=== PATIENT | female | born 1990 ===

== ENCOUNTER 2023-01-17 23:24 | Inpatient (IN) | payer MEDICAID, SELFPAY ==
--- NOTE | ~2023-01-17 | XR_ITS ---
EXAMINATION: XR CHEST CLINICAL INFORMATION: Rib pain. COMPARISON: None available. TECHNIQUE: Frontal view of the chest was obtained. FINDINGS: The cardiomediastinal silhouette is normal. There is no focal lung consolidation or pleural effusion. The bony structures and soft tissues are unremarkable. XR/XR chest 1V IMPRESSION: No active cardiopulmonary disease.
--- NOTE | ~2023-01-17 | CT_ITS ---
EXAMINATION: CT ABDOMEN AND PELVIS WITHOUT CONTRAST CLINICAL INFORMATION: Abdominal pain. COMPARISON: None available. TECHNIQUE: Multidetector volumetric imaging was performed from the superior aspect of the liver through the pubic symphysis. Sagittal and coronal reformatted images were obtained on the technologist's workstation. This CT examination was performed using dose optimization techniques as appropriate, variously including the following: *Automated exposure control *Adjustment of mA and/or kV according to patient size (this includes techniques or standardized protocols for targeted exams where dose is matched to indication/reason for exam; i.e. extremities or head) *Use of iterative reconstruction technique DLP: 429.02 mGy-cm FINDINGS: LUNG BASES: The visualized lung bases are unremarkable. LIVER, GALLBLADDER, AND BILIARY TREE: The liver is normal in size, shape, and attenuation. No focal hepatic lesion or biliary ductal dilatation is present. The gallbladder is unremarkable with no evidence of radiopaque gallstones, gallbladder wall thickening, or obvious pericholecystic inflammatory changes. PANCREAS: Unremarkable. SPLEEN: Unremarkable. ADRENAL GLANDS: Unremarkable. KIDNEYS AND URETERS: There is [id number] right hydronephrosis and hydroureter extending into the pelvis. No definite right ureteric calculi are seen. BLADDER: Unremarkable. GASTROINTESTINAL TRACT: The small and large bowel are unremarkable. There is retained stool throughout. The appendix is not definitively identified. ABDOMINAL WALL: No significant hernia is appreciated. LYMPH NODES: Normal. VASCULAR: Unremarkable. PELVIC VISCERA: Unremarkable. OSSEOUS STRUCTURES: Unremarkable. CT/CT abdomen pelvis wo IV con IMPRESSION: [id number] right hydronephrosis and hydroureter extending into the pelvis. No definitive ureteral calculi are seen. Consider recently passed calculus and less likely ascending infection.. Fleischner guidelines were followed.
[2023-01-17 23:42] VITALS: BP 124/69; PULSE 135; RESP 16; TEMP 39.3; O2SAT 95; BMI 24.7
[2023-01-18] VITALS (13 sets, daily range): BP systolic 94–132; BP diastolic 48–70; PULSE 69–129; RESP 14–20; TEMP 36.1–39.4; O2SAT 96–100
--- NOTE | 2023-01-18 00:01 | ED.GENADULT ---
HPI - General Adult General Chief complaint: General Medical Stated complaint: Vomiting/Diarrhea/Headache Time Seen by Provider: 01/17/23 23:52 Source: patient, RN notes reviewed, old records reviewed and science interpreter Mode of arrival: ambulatory Limitations: language barrier History of Present Illness HPI narrative: 32-year-old female who denies any past medical history presents for evaluation of fever, body aches and right flank pain Patient reports for the last 5 days she has had fevers, body aches, headache. She reports right-sided abdominal pain/flank pain as well as vomiting She reports some burning with urination but reports that this is mild Patient reports a surgical history that includes remote appendectomy and Caesarean section She reports a known history of genital herpes but denies any concern for acute STIs Denies any new sexual partners Patient arrives febrile with temperature a 102.7? of heart rate is regular but 135 beats per minute. Related Data Allergies Allergy/AdvReac Type Severity Reaction Status Date / Time amoxicillin AdvReac Anaphylaxis Verified 01/17/23 23:37 Review of Systems Constitutional: Constitutional: Reports as per HPI, Reports chills, Reports fever(s), Reports lethargy, Reports malaise and Reports weakness Cardiovascular: Cardiovascular: Denies chest pain and Denies dyspnea Respiratory: Respiratory: Denies cough and Denies dyspnea Gastrointestinal: Gastrointestinal: Reports abdominal pain, Denies constipation, Reports nausea and Reports vomiting Genitourinary: Genitourinary: Denies abnormal vaginal bleeding, Denies dysmenorrhea, Reports dysuria and Denies pelvic pain Musculoskeletal: Musculoskeletal: Denies back pain Neurologic: Denies focal weakness and Reports weakness PMFSH Social History Social History Alcohol intake: never Smoked in Last 30 Days: No Use of substances other than those prescribed or required for medical reasons: No Advance Directives: No Advance Directives Information Provided: Yes Patient : No Physical Exam ED Vital Signs: Vital Signs - 24 hr 01/17/23 23:42 01/18/23 00:00 01/18/23 00:57 Temperature 102.7 F H 102.0 F H Pulse Rate 135 H 126 H Pulse Rate [Monitor] 129 H Respiratory Rate 16 20 Blood Pressure 124/69 115/63 Pulse Oximetry 95 98 Oxygen Delivery Method Room Air Room Air Oxygen Flow Rate 01/18/23 00:57 01/18/23 01:31 01/18/23 02:31 Temperature 102.0 F H 102.9 F H 98.9 F Pulse Rate 127 H 115 H 98 Pulse Rate [Monitor] Respiratory Rate 18 16 16 Blood Pressure 109/70 115/48 L 102/50 L Pulse Oximetry 100 98 98 Oxygen Delivery Method Room Air Room Air Room Air Oxygen Flow Rate 98 BMI result Body Mass Index 24.7 Const General: healthy appearing, no acute distress, alert and awake Nutritional Appearance: well nourished Orientation/consciousness: patient oriented x3 HENMT Head: Yes normocephalic and Yes atraumatic Eyes Eyelids: Yes eyelids normal Conjunctivae: conjunctivae normal Sclerae: sclerae normal Corneas: corneas normal Pupils: Equal, round and reactive pupils present EOM: EOMs intact bilaterally Neck Neck: Yes full ROM Resp Effort & Inspection: normal respiratory effort, able to speak in complete sentences and not labored Cardio Rate: regular rate Rhythm: regular rhythm GI Inspection: No distended Palpation (GI): Soft to palpation, not firm, Tenderness to palpation present (GI) in the RUQ (Mild right upper quadrant tenderness without guarding), no guarding and not rigid Auscultation: normoactive bowel sounds General: Yes CVA tenderness (On right) Back/Spine/Pelvis Back: CVA tenderness (On right) Skin General skin exam: no rashes or lesions noted and elasticity normal Neuro General: patient oriented x3 Cranial nerves: Yes Equal, round and reactive pupils present and Yes Bilaterally intact EOM present Cognition (Neuro): normal cognition Extrem Other: Moving all extremities well without any obvious deformities Course Reevaluation(s) Reevaluation #1: The patient was found to be febrile and tachycardic. She had a suspected urinary infection with a right flank pain. Will treat with ceftriaxone as this is the likely cause. The patient's urine is negative, will consider advanced imaging in which case he may have to amend antibiotic choice Time: 01:29 Reevaluation #2: Patient's urine sample is positive for UTI with 4+ bacteria. This is likely the source of her infection given her symptoms. Patient still feels weak after C1 L IV fluid. I ordered Toradol and a 2 L of fluid. After her fever broke her temperature of 98.9,, her blood pressure was slightly hypotensive at 102/50. I discussed with the hospitalist, Dr. Hitchcock who will admit the patient Time: 02:39 Medications Administered Discontinued Medications Generic Name Dose Route Start Last Admin Trade Name Kailee PRN Reason Stop Dose Admin Acetaminophen 975 mg 01/17/23 23:57 01/18/23 00:51 Acetaminophen 325 Mg Tablet PO 01/17/23 23:58 975 mg ONCE ONE Administration Sodium Chloride 1,000 mls @ 999 mls/hr 01/17/23 23:45 01/18/23 00:51 Ns IV 01/18/23 00:45 999 mls/hr .Q1H1M ARGELIA Administration Ceftriaxone Sodium 1 gm/ 50 mls @ 100 mls/hr 01/18/23 01:26 01/18/23 01:41 Sodium Chloride IV 01/18/23 01:55 100 mls/hr ONCE ONE Administration Ondansetron HCl 4 mg 01/17/23 23:57 01/18/23 00:51 Ondansetron Hcl 4 Mg/2 Ml Vial IVPUSH 01/17/23 23:58 4 mg ONCE ONE Administration Medical Decision Making Medical Decision Making [facility] Narrative: 32-year-old female presents for evaluation of right flank pain, burning with urination, vomiting abdominal pain. She is mildly tender in the right upper quadrant, but she has significant right flank tenderness and positive CVA tenderness. She is tachycardic and febrile. Concern for sepsis. Will treat with IV fluids, antipyretics. Labs, UA pending. Will defer imaging until labs and UA results. CT scan versus ultrasound of the right upper quadrant. Differential Diagnosis Differential Diagnoses: The differential diagnosis associated with the presentation includes Acute cholecystitis Pyelonephritis UTI Sepsis Viral syndrome Pneumonia Lab Data 01/18/23 00:17 01/18/23 00:17 Labs: Lab Results 01/18/23 01/18/23 01/18/23 Range/Units 00:17 00:17 00:17 WBC 11.7 H (4.8-10.8) X10*3/uL RBC 4.01 L (4.20-5.50) X10*6/uL Hgb 11.6 L (12.0-16.0) g/dl Hct 34.4 L (37.0-47.0) % MCV 85.8 (80.0-98.0) fL MCH 28.9 (27.0-33.0) pg MCHC 33.7 (31.0-35.0) g/dl RDW 12.2 (11.0-16.0) % Plt Count 242 (160-400) X10*3/uL MPV 10.5 (9.4-12.3) fL Absolute Nucleated RBC 0.000 (0.0-0.012) X10*3/uL Nucleated RBC % (auto) 0.0 (0.0-0.2) /100WBC Sodium 132 L (135-145) mmol/L Potassium 3.5 (3.3-5.1) mmol/L Chloride 97 (96-108) mmol/L Carbon Dioxide 24 (22-29) mmol/L Anion Gap 15 (12-20) BUN 11 (9-16) mg/dL Creatinine 0.83 (0.5-1.4) mg/dL Estim Creat Clear Calc 85.3 Estimated GFR > 60 Random Glucose 110 (60-115) mg/dL Lactic Acid 1.2 (0.5-2.0) mmol/L Calcium 9.2 (8.4-10.2) mg/dL Total Bilirubin 0.5 (0.0-1.0) mg/dL AST 14 (5-31) U/L ALT 10 (0-31) U/L Alkaline Phosphatase 73 (39-117) U/L Total Protein 7.4 (6.5-8.0) g/dL Albumin 3.7 (3.5-5.0) g/dL Lipase 7 L (8-78) U/L Urine Color Urine Appearance Urine pH (5.0-9.0) Ur Specific [place] (1.005-1.025) Urine Protein (Neg-Trace) mg/dL Urine Glucose (UA) (Negative) mg/dL Urine Ketones (Negative) mg/dL Urine Blood (Negative) Urine Nitrite (Negative) Ur Leukocyte Esterase (Negative) Urine RBC (0-2) /HPF Urine WBC (0-5) /HPF Ur Squamous Epith Cells (0-2) /HPF Urine Bacteria (None Seen) Hyaline Casts (0-2) /LPF Urine Test (NEGATIVE) Influenza Type A (PCR) (Negative) Influenza Type B (PCR) (Negative) RSV RNA Qual (PCR) (Negative) SARS-CoV-2 RNA (RT-PCR) (Negative) 01/18/23 01/18/23 01/18/23 Range/Units 00:34 01:42 01:42 WBC (4.8-10.8) X10*3/uL RBC (4.20-5.50) X10*6/uL Hgb (12.0-16.0) g/dl Hct (37.0-47.0) % MCV (80.0-98.0) fL MCH (27.0-33.0) pg MCHC (31.0-35.0) g/dl RDW (11.0-16.0) % Plt Count (160-400) X10*3/uL MPV (9.4-12.3) fL Absolute Nucleated RBC (0.0-0.012) X10*3/uL Nucleated RBC % (auto) (0.0-0.2) /100WBC Sodium (135-145) mmol/L Potassium (3.3-5.1) mmol/L Chloride (96-108) mmol/L Carbon Dioxide (22-29) mmol/L Anion Gap (12-20) BUN (9-16) mg/dL Creatinine (0.5-1.4) mg/dL Estim Creat Clear Calc Estimated GFR Random Glucose (60-115) mg/dL Lactic Acid (0.5-2.0) mmol/L Calcium (8.4-10.2) mg/dL Total Bilirubin (0.0-1.0) mg/dL AST (5-31) U/L ALT (0-31) U/L Alkaline Phosphatase (39-117) U/L Total Protein (6.5-8.0) g/dL Albumin (3.5-5.0) g/dL Lipase (8-78) U/L Urine Color Yellow Urine Appearance Cloudy Urine pH 5.5 (5.0-9.0) Ur Specific [place] 1.020 (1.005-1.025) Urine Protein 100 (2+) H (Neg-Trace) mg/dL Urine Glucose (UA) Negative (Negative) mg/dL Urine Ketones 80 (Negative) mg/dL Urine Blood Small (1+) H (Negative) Urine Nitrite Negative (Negative) Ur Leukocyte Esterase Small (1+) H (Negative) Urine RBC 0-2 (0-2) /HPF Urine WBC 11-20 (0-5) /HPF Ur Squamous Epith Cells 11-20 (0-2) /HPF Urine Bacteria 4+ (None Seen) Hyaline Casts 3-5 (0-2) /LPF Urine Test NEGATIVE (NEGATIVE) Influenza Type A (PCR) NEGATIVE (Negative) Influenza Type B (PCR) NEGATIVE (Negative) RSV RNA Qual (PCR) NEGATIVE (Negative) SARS-CoV-2 RNA (RT-PCR) NEGATIVE (Negative) Discharge Plan Discharge Clinical Impression: Pyelonephritis of right kidney Patient Disposition: Admitted As Inpatient
[2023-01-18 00:20] LABS: Hematocrit 34.4 % (37.0-47.0); Hemoglobin 11.6 g/dl (12.0-16.0); Mean Corpuscular HGB Conc 33.7 g/dl (31.0-35.0); Mean Corpuscular Hemoglobin 28.9 pg (27.0-33.0); Mean Corpuscular Volume 85.8 fL (80.0-98.0); Mean Platelet Volume 10.5 fL (9.4-12.3); Platelet Count 242 X10*3/uL (160-400); Red Blood Count 4.01 X10*6/uL (4.20-5.50); Red Cell Distribution Width 12.2 % (11.0-16.0); White Blood Count 11.7 X10*3/uL (4.8-10.8)
[2023-01-18 00:29] LABS: Lactic Acid 1.2 mmol/L (0.5-2.0)
[2023-01-18 00:34] LABS: Alanine Aminotransferase 10 U/L (0-31); Albumin Level 3.7 g/dL (3.5-5.0); Alkaline Phosphatase 73 U/L (39-117); Anion Gap 15 (12-20); Aspartate Amino Transferase 14 U/L (5-31); Bilirubin Total 0.5 mg/dL (0.0-1.0); Blood Urea Nitrogen 11 mg/dL (9-16); Calcium 9.2 mg/dL (8.4-10.2); Carbon Dioxide 24 mmol/L (22-29); Chloride 97 mmol/L (96-108); Creatinine Clr Calc Pharmacy 85.3; Estimated Glomerular Filt Rate > 60; Glucose Random 110 mg/dL (60-115); Lipase 7 U/L (8-78); Potassium 3.5 mmol/L (3.3-5.1); Sodium 132 mmol/L (135-145); Total Protein 7.4 g/dL (6.5-8.0)
[2023-01-18] MEDS: 0.9 % Sodium Chloride 1,000 ML 999 ML IV ×2 (00:51→02:56)
[2023-01-18] MEDS: Acetaminophen 325 MG TABLET 975 MG PO (00:51)
[2023-01-18] MEDS: ondansetron HCL 4 MG/2 ML VIAL IVPUSH ×3 (00:51→21:01)
[2023-01-18 01:17] LABS: Influenza A PCR NEGATIVE (Negative); Influenza B PCR NEGATIVE (Negative); Resp Syncy Virus RNA Qual PCR NEGATIVE (Negative); SARS COV2 PCR INHOUSE NEGATIVE (Negative)
[2023-01-18] MEDS: cefTRIAXone sodium 1 GM in 0.9 % Sodium Chloride 50 ML IV ×2 (01:41→21:33)
--- NOTE | 2023-01-18 01:44 | MHC.EDTECH ---
PATIENT URINE SAMPLE COLLECTED AND SENT TO LAB ,VITALS SIGN TAKEN ,RN ALBERTINA IS AWARE OF PT HIGH TEMP ,HIGH HR AND LOW BP ,PATIENT WAS HOOKED TO TO GUEST SERVICE AIDE ,PT BOY FRIEND AT BEDSIDE .
[2023-01-18 01:48] LABS: Appearance Urine Cloudy; Color Urine Yellow; Glucose Urine UA Negative (Negative); Leukocyte Esterase Urine Small (1+) (Negative); Nitrite Urine Negative (Negative); PH 5.5 (5.0-9.0); UMIC TRIGGER UACC YES; Urine Blood Small (1+) (Negative); Urine Ketones 80 mg/dL (Negative); Urine Protein 100 (2+) mg/dL (Neg-Trace)
[2023-01-18 01:49] LABS: UPreg QC Valid YES; Urine Pregnancy NEGATIVE (NEGATIVE)
[2023-01-18 02:00] LABS: Bacteria Urine 4+ (None Seen); RBC Urine 0-2 /HPF (0-2); UACC Culture Trigger YES
[2023-01-18] MEDS: Ketorolac Tromethamine 30 MG/ML VIAL IVPUSH (02:56)
[2023-01-18] MEDS: Lactated Ringers 1,000 ML 999 ML IV (04:39)
--- NOTE | 2023-01-18 05:00 | PC.NURSE ---
Addendum entered by America Erwin Milvia 01/18/23 06:35: Labs drawn- lactic and blood cultures. Original Note: Medical interrupter present at bedside during assessment. PT arrived via waiting room with cc of fever since , burning sensation while urinating and malaise. 20g IV access in right AC, VSS. Bolus of Saline initiated and tylenol administered.
[2023-01-18 05:31] LABS: MANUAL DIFF FLAG NO
[2023-01-18 05:33] LABS: Basophils Percent Auto 0.2 % (0-2); Hematocrit 28.4 % (37.0-47.0); Hemoglobin 9.5 g/dl (12.0-16.0); Imm Gran Abs Auto 0.07 X10*3/uL (0.00-0.03); Imm Gran Pct Auto 0.7 % (0.0-0.4); Lymphocytes Absolute Auto 1.1 X10*3/uL (1.2-4.9); Lymphocytes Percent Auto 11.8 % (20-40); Mean Corpuscular HGB Conc 33.5 g/dl (31.0-35.0); Mean Corpuscular Hemoglobin 29.3 pg (27.0-33.0); Mean Corpuscular Volume 87.7 fL (80.0-98.0); Mean Platelet Volume 10.6 fL (9.4-12.3); Monocytes Absolute Auto 1.2 X10*3/uL (0.1-1.2); Neutrophils Percent Auto 74.3 % (45-73); Platelet Count 192 X10*3/uL (160-400); Red Blood Count 3.24 X10*6/uL (4.20-5.50); Red Cell Distribution Width 12.5 % (11.0-16.0); White Blood Count 9.5 X10*3/uL (4.8-10.8)
[2023-01-18 05:55] LABS: Anion Gap 12 (12-20); Blood Urea Nitrogen 10 mg/dL (9-16); Calcium 7.5 mg/dL (8.4-10.2); Carbon Dioxide 21 mmol/L (22-29); Chloride 107 mmol/L (96-108); Creatinine Clr Calc Pharmacy 105.7; Estimated Glomerular Filt Rate > 60; Glucose Random 104 mg/dL (60-115); Potassium 3.5 mmol/L (3.3-5.1); Sodium 136 mmol/L (135-145)
--- NOTE | 2023-01-18 06:12 | PM.IMHP ---
History of Present Illness Date of Service: 01/18/23 Chief Complaint: Flank pain, fever and chills 32-year-old female with no significant past medical history, Icelandic-speaking, history is obtained with the help of an hydraulic jack mechanic, comes into the hospital complaints of fever chills, and right flank pain. Symptoms started 4 days ago. Associated with some nausea no vomiting, no diarrhea constipation, pain is statin of 10, radiating to the groin, no urinary symptoms including no dysuria or frequency. Denies any chest pain, no shortness of breath, no headache or change in vision, and no lower extremity edema. On arrival to the ED patient hemodynamically stable with a fever of 102.7, heart rate of 135, Labs are significant for WBC count of 11.7, hemoglobin of 11.6, hematocrit 34.4, sodium of 132 that normalized after IV fluids, UA positive for leukocyte Estrace, WBC, bacteria Chest x-ray negative Patient started on antibiotics and will be admitted for further management Review of Systems Review of Systems: Yes all other systems are reviewed and are negative PMFSH Medical History No pertinent past medical history Surgical History No pertinent past surgical history Social History Alcohol intake: never Smoked in Last 30 Days: No Use of substances other than those prescribed or required for medical reasons: No Advance Directives: No Advance Directives Information Provided: Yes Patient : No Meds Allergies Allergy/AdvReac Type Severity Reaction Status Date / Time amoxicillin AdvReac Anaphylaxis Verified 01/17/23 23:37 Active Medications: Current Medications Acetaminophen (Acetaminophen 325 Mg Tablet) 650 mg PO Q6H PRN PRN Reason: Pain, Mild (Pain Scale 1-3) Docusate Sodium (Docusate Sodium 100 Mg Capsule) 100 mg PO DAILY PRN PRN Reason: Constipation Enoxaparin Sodium (Enoxaparin Sodium 40 Mg/0.4 Ml Syringe) 40 mg SUBCUT Q24H ARGELIA Ceftriaxone Sodium 1 gm/ (Sodium Chloride) 50 mls @ 100 mls/hr IV Q24H ARGELIA Ondansetron HCl (Ondansetron Hcl 4 Mg/2 Ml Vial) 4 mg IVPUSH Q8H PRN PRN Reason: Nausea and Vomiting Oxycodone HCl (Oxycodone Hcl Immed Release 5 Mg Tablet) 5 mg PO Q6H PRN PRN Reason: Pain, Severe (Pain Scale 7-10) Sodium Chloride (0.9 % Sodium Chloride Flush 3 Ml Syringe) 3 ml IVFLUSH QSHIFT ARGELIA Physical Exam Vital Signs and Narrative: Vital Signs: Last Vital Signs Temp 98.4 F 01/18/23 03:50 Pulse 79 01/18/23 03:50 Resp 15 01/18/23 03:50 BP 102/54 L 01/18/23 03:50 Pulse Ox 98 01/18/23 03:50 O2 Del Method Room Air 01/18/23 03:50 O2 Flow Rate 98 01/18/23 00:57 BMI result Body Mass Index 24.7 Const: Other: Ill-appearing General: cooperative and no acute distress Orientation/consciousness: patient oriented x3 Eyes: General: appearance normal, both eyes and all related structures Resp: Effort & Inspection: normal respiratory effort Auscultation: clear to auscultation bilaterally Cardio: Rate: regular rate Rhythm: regular rhythm GI: Palpation (GI): Soft to palpation Auscultation: normal bowel sounds : Other: Right CVA tenderness Skin: General skin exam: no rashes or lesions noted Neuro: General: patient oriented x3 Cognition (Neuro): normal cognition Extrem: General: Yes normal to inspection and Yes no pedal edema Results Labs 01/18/23 05:09 01/18/23 05:09 Labs: Laboratory Results - last 24 hr 01/18/23 01/18/23 01/18/23 00:17 00:17 00:17 MCV 85.8 MCH 28.9 MCHC 33.7 RDW 12.2 Plt Count 242 MPV 10.5 Immature Gran % (Auto) Neut % (Auto) Lymph % (Auto) [place] % (Auto) Eos % (Auto) Baso % (Auto) Lymph # (Auto) [place] # (Auto) Eos # (Auto) Baso # (Auto) Abs Immat Gran (auto) Absolute Neuts (auto) Absolute Nucleated RBC 0.000 Nucleated RBC % (auto) 0.0 Anion Gap 15 Estim Creat Clear Calc 85.3 Estimated GFR > 60 Random Glucose 110 Lactic Acid 1.2 Calcium 9.2 Total Bilirubin 0.5 AST 14 ALT 10 Alkaline Phosphatase 73 Total Protein 7.4 Albumin 3.7 Lipase 7 L Urine Color Urine Appearance Urine pH Ur Specific [place] Urine Protein Urine Glucose (UA) Urine Ketones Urine Blood Urine Nitrite Ur Leukocyte Esterase Urine RBC Urine WBC Ur Squamous Epith Cells Urine Bacteria Hyaline Casts Urine Test Influenza Type A (PCR) Influenza Type B (PCR) RSV RNA Qual (PCR) SARS-CoV-2 RNA (RT-PCR) 01/18/23 01/18/23 01/18/23 00:34 01:42 01:42 MCV MCH MCHC RDW Plt Count MPV Immature Gran % (Auto) Neut % (Auto) Lymph % (Auto) [place] % (Auto) Eos % (Auto) Baso % (Auto) Lymph # (Auto) [place] # (Auto) Eos # (Auto) Baso # (Auto) Abs Immat Gran (auto) Absolute Neuts (auto) Absolute Nucleated RBC Nucleated RBC % (auto) Anion Gap Estim Creat Clear Calc Estimated GFR Random Glucose Lactic Acid Calcium Total Bilirubin AST ALT Alkaline Phosphatase Total Protein Albumin Lipase Urine Color Yellow Urine Appearance Cloudy Urine pH 5.5 Ur Specific [place] 1.020 Urine Protein 100 (2+) H Urine Glucose (UA) Negative Urine Ketones 80 Urine Blood Small (1+) H Urine Nitrite Negative Ur Leukocyte Esterase Small (1+) H Urine RBC 0-2 Urine WBC 11-20 Ur Squamous Epith Cells 11-20 Urine Bacteria 4+ Hyaline Casts 3-5 Urine Test NEGATIVE Influenza Type A (PCR) NEGATIVE Influenza Type B (PCR) NEGATIVE RSV RNA Qual (PCR) NEGATIVE SARS-CoV-2 RNA (RT-PCR) NEGATIVE 01/18/23 01/18/23 05:09 05:09 MCV 87.7 MCH 29.3 MCHC 33.5 RDW 12.5 Plt Count 192 MPV 10.6 Immature Gran % (Auto) 0.7 H Neut % (Auto) 74.3 H Lymph % (Auto) 11.8 L [place] % (Auto) 13.0 H Eos % (Auto) 0.0 Baso % (Auto) 0.2 Lymph # (Auto) 1.1 L [place] # (Auto) 1.2 Eos # (Auto) 0.0 Baso # (Auto) 0.0 Abs Immat Gran (auto) 0.07 H Absolute Neuts (auto) 7.0 Absolute Nucleated RBC 0.000 Nucleated RBC % (auto) 0.0 Anion Gap 12 Estim Creat Clear Calc 105.7 Estimated GFR > 60 Random Glucose 104 Lactic Acid Calcium 7.5 L D Total Bilirubin AST ALT Alkaline Phosphatase Total Protein Albumin Lipase Urine Color Urine Appearance Urine pH Ur Specific [place] Urine Protein Urine Glucose (UA) Urine Ketones Urine Blood Urine Nitrite Ur Leukocyte Esterase Urine RBC Urine WBC Ur Squamous Epith Cells Urine Bacteria Hyaline Casts Urine Test Influenza Type A (PCR) Influenza Type B (PCR) RSV RNA Qual (PCR) SARS-CoV-2 RNA (RT-PCR) Imaging Radiologist's Impressions: Impressions Chest X-Ray 01/18/23 00:22 IMPRESSION: No active cardiopulmonary disease. Assessment and Plan (1) Pyelonephritis of right kidney: Status: Acute (2) Sepsis: Qualifiers: Sepsis type: sepsis due to unspecified organism Sepsis acute organ dysfunction status: without acute organ dysfunction Qualified Code(s): A41.9 - Sepsis, unspecified organism Status: Acute Plan 32-year-old female with no significant past medical history comes into the hospital with complaints of right flank pain found to have sepsis # acute sepsis - secondary to UTI - febrile, tachycardic, tachypneic, leukocytosis - will treat with IV antibiotics - follow cultures # acute pyelonephritis/ UTI - will treat with IV antibiotics - given the severe abdominal pain will obtain CT abdomen to rule out nephrolithiasis - follow cultures DVT prophylaxis: Lovenox Given patient's need for IV antibiotics for acute pyelonephritis is sepsis patient will require minimum 2 nights inpatient hospital stay for further management and monitoring Time Spent With Patient Time: Total time managing care of this patient today ____ minutes. Quality Stroke Does the patient have a stroke diagnosis?: No VTE Prior VTE?: No VTE Risk Level:: Medical - moderate - high VTE Device Contraindication: Treatment Not Indicated VTE Drug Contraindication: N/A - Med Ordered
--- NOTE | 2023-01-18 06:36 | PC.NURSE ---
Sepsis protocol initiated at 0130 By EMMA Castelan. IV antibiotics administered at 0141. Second bag of NS given at 0256 infusion done at 3:30. Two sets of BP completed at 0335 and 0351. PT BP soft discussed with provider. administered LR as per AUG. PT in trendelenburg position.
--- NOTE | 2023-01-18 07:41 | MHC.EDTECH ---
Pt oob to commode 1 assist. Bed linens cleaned and pt washed up. Resting quietly in bed watching tv, call araujo within reach.
--- NOTE | 2023-01-18 08:08 | PC.NURSE ---
montenegrin speaking pt - certified court/medical interpreter to bedside. pt axox4, vss bp soft 91/50; pt reports dizziness when standing/walking MD aware. respirations even and unlabored, nsr on monitor 76 bpm, sats 99% RA, skin wpd. pt denies pain at this time; states no pain upon urination. pt aware of plan of care; denies questions/concerns at this time. call araujo within reach.
--- NOTE | 2023-01-18 08:32 | PC.NURSE ---
md to bedside. aware of bp 94/47 and pt reporting dizziness. no further orders at this time.
[2023-01-18] MEDS: Enoxaparin Sodium 40 MG/0.4 ML SYRINGE SUBCUT (08:34)
[2023-01-18] MEDS: 0.9 % Sodium Chloride Flush 3 ML SYRINGE IVFLUSH (08:34)
[2023-01-18] MEDS: 0.9 % Sodium Chloride 1,000 ML 125 ML IVCONT ×2 (08:35→16:46)
--- NOTE | 2023-01-18 08:39 | PHA.MEDREC ---
Pharmacy Consult ? Medication Reconciliation Pharmacy has completed the medication reconciliation. Utilized intepreter services.
--- NOTE | 2023-01-18 08:42 | PC.NURSE ---
ivf infusing per order.
--- NOTE | 2023-01-18 09:38 | PM.EVENT ---
Event Note Date of Service: 01/18/23 Event Note: Personally seen and examined, admitted this morning with acute pyelonephritis, fever resolved, cultures pending. Continue IV Abx, follow cultures, IVF for borderline low BP, o/w A/P per H and P from this morning Time Spent With Patient Time: Total time managing care of this patient today ____ minutes.
--- NOTE | 2023-01-18 12:50 | PC.NURSE ---
Addendum entered by Ashley Torres 01/18/23 12:59: pt also reports nausea; pt medicated per aug. Original Note: pt axox4, tachy on monitor 138 bpm, respirations even and unlabored sats 98% RA, febrie 102F temp; Dr. Jaimes notified.
[2023-01-18] MEDS: Acetaminophen 325 MG TABLET 650 MG PO ×2 (12:56→19:26)
--- NOTE | 2023-01-18 14:02 | MHC.CM.PN ---
pt lves with family she had no servceis prior to admisison has her own ride home dc plan home no servcies
--- NOTE | 2023-01-18 17:35 | PC.NURSE ---
pt requesting to take shower. IV fluids paused, pt disconnected from IV, IV wrapped. SCHOOL BUS MECHANIC escorted pt to shower
--- NOTE | 2023-01-18 17:50 | PC.NURSE ---
nurse to nurse report given to MORENO Rivera
--- NOTE | 2023-01-18 17:54 | PC.NURSE ---
pt reports episode of diarrhea
--- NOTE | 2023-01-18 18:01 | MHC.EDTECH ---
Assisted pt with shower.
[2023-01-18] MEDS: oxyCODONE HCl Immed Release 5 MG TABLET PO (19:25)
[2023-01-19 03:26] VITALS: BP 116/63; PULSE 86; RESP 18; TEMP 36.7; O2SAT 100
[2023-01-19] MEDS: 0.9 % Sodium Chloride 1,000 ML 125 ML IVCONT ×3 (03:47→20:44)
[2023-01-19 07:13] VITALS: BP 104/59; PULSE 117; RESP 20; TEMP 38.4; O2SAT 97
[2023-01-19] MEDS: Acetaminophen 325 MG TABLET 650 MG PO ×2 (07:53→13:20)
[2023-01-19] MEDS: Enoxaparin Sodium 40 MG/0.4 ML SYRINGE SUBCUT (09:16)
--- NOTE | 2023-01-19 09:55 | PC.NURSE ---
Patient c/o headache congestions chest pain 4/10 in am with breathing. Temp 101.1. Dr Jaimes notified no new orders. Tylenol given with good results temp 98.6 per pt pain/discomfort improved. LSCTA no shortness of breath occasional dry cough. OOB to bathroom steady denies discomfort with voiding. IV fluids infusing per order. Will continue to monitor and report changes
--- NOTE | 2023-01-19 10:56 | P.PNIM_ITS ---
Subjective Subjective Date of Service: 01/19/23 Interval History: fever up to 101, tachycardic, cultures pending Physical Exam Vital Signs: Vital Signs: Last Vital Signs Temp 101.1 F H 01/19/23 07:13 Pulse 117 H 01/19/23 07:13 Resp 20 01/19/23 07:13 BP 104/59 L 01/19/23 07:13 Pulse Ox 97 01/19/23 07:13 O2 Del Method Room Air 01/19/23 07:13 O2 Flow Rate 98 01/18/23 00:57 BMI result Body Mass Index 24.7 Const: Other: General: AO X 3, no acute distress Resp: CTA bilateral CVS: S1,S2,RRR GI: +BS, NT, no distention Skin: No rash Neuro: motor grossly intact Psych: appropriate affect Objective Data Active Medications Acetaminophen (Acetaminophen 325 Mg Tablet) 650 mg PO Q6H PRN PRN Reason: Pain, Mild (Pain Scale 1-3) Last Admin: 01/19/23 07:53 Dose: 650 mg Documented By: LOUIS Docusate Sodium (Docusate Sodium 100 Mg Capsule) 100 mg PO DAILY PRN PRN Reason: Constipation Enoxaparin Sodium (Enoxaparin Sodium 40 Mg/0.4 Ml Syringe) 40 mg SUBCUT Q24H [facility] Last Admin: 01/19/23 09:16 Dose: 40 mg Documented By: LOUIS Ceftriaxone Sodium 1 gm/ (Sodium Chloride) 50 mls @ 100 mls/hr IV Q24H [facility] Last Infusion: 01/18/23 22:04 Dose: 0 mls/hr Documented By: CASSIE Sodium Chloride (Ns) 1,000 mls @ 125 mls/hr IVCONT .Q8H [facility] Last Admin: 01/19/23 03:47 Dose: 125 mls/hr Documented By: SILVINO Ondansetron HCl (Ondansetron Hcl 4 Mg/2 Ml Vial) 4 mg IVPUSH Q8H PRN PRN Reason: Nausea and Vomiting Last Admin: 01/18/23 21:01 Dose: 4 mg Documented By: CASSIE Oxycodone HCl (Oxycodone Hcl Immed Release 5 Mg Tablet) 5 mg PO Q6H PRN PRN Reason: Pain, Severe (Pain Scale 7-10) Last Admin: 01/18/23 19:25 Dose: 5 mg Documented By: CASSIE Sodium Chloride (0.9 % Sodium Chloride Flush 3 Ml Syringe) [facility] Last Admin: 01/19/23 07:54 Dose: Not Given Documented By: LOUIS Non-Admin Reason: IV Running Labs 01/18/23 05:09 01/18/23 05:09 Microbiology Microbiology Results: Microbiology 01/18/23 00:17 Blood Culture - Preliminary Blood - Venous No growth after 24 hours. 01/18/23 00:17 Blood Culture - Preliminary Blood - Venous No growth after 24 hours. Assessment and Plan (1) Hydronephrosis: Status: Acute Plan 32-year-old female with no significant past medical history comes into the hospital with complaints of right flank pain found to have sepsis # acute sepsis d/t UTI, and Pylonephritis, febril still, cultures pending. Continue Ceftriaxone. Get Urology consult due to hydronephrosis ? stone DVT prophylaxis: Lovenox Given patient's need for IV antibiotics for acute pyelonephritis is sepsis patient will require minimum 2 nights inpatient hospital stay for further management and monitoring Time Spent With Patient Time: Total time managing care of this patient today ____ minutes. Quality Stroke Does the patient have a stroke diagnosis?: No VTE Prior VTE?: No VTE Risk Level:: Medical - moderate - high VTE Device Contraindication: Treatment Not Indicated VTE Drug Contraindication: N/A - Med Ordered
--- NOTE | 2023-01-19 12:03 | MHC.CM.PN ---
EMR reviewed and per MD rounds, pt is not medically cleared for D/C home with blood cultures and UA pending. CM will continue to follow.
--- NOTE | 2023-01-19 12:31 | P.CNUR_ITS ---
History of Present Illness Consult details Consult date: 01/19/23 Narrative: 32-year-old female who presented for evaluation of fever, body aches and acute right flank pain Patient reports for the last 5 days she has had fevers, body aches, headache.? She reports right-sided abdominal pain/flank pain as well as vomiting She reports some burning with urination but reports that this is mild PM and surgical history that includes appendectomy and Caesarean section history of genital herpes but denies any concern for acute STIs, denies history of kidney stones in the past. Presentation in ED meets criteria for sepsis- 102.7?, tachycardia. Urine c/s pending. CTAP: [id number] right hydronephrosis and hydroureter extending into the pelvis. No definitive ureteral calculi are seen. Consider recently passed calculus and less likely ascending infection..? Review of Systems Review of Systems: 10 point ROS negative other than HPI PMFSH Past Medical History Medical History No pertinent past medical history Surgical History Surgical History No pertinent past surgical history Social History Social History Household Members: Friend(s) Housing: Apartment Do you presently have visiting nurse or other home services: No Alcohol intake: never Patient Tobacco Use Status: Never used Tobacco service: No Meds Allergies Allergy/AdvReac Type Severity Reaction Status Date / Time amoxicillin AdvReac Anaphylaxis Verified 01/17/23 23:37 Active Medications: Current Medications Acetaminophen (Acetaminophen 325 Mg Tablet) 650 mg PO Q6H PRN PRN Reason: Pain, Mild (Pain Scale 1-3) Last Admin: 01/19/23 07:53 Dose: 650 mg Docusate Sodium (Docusate Sodium 100 Mg Capsule) 100 mg PO DAILY PRN PRN Reason: Constipation Enoxaparin Sodium (Enoxaparin Sodium 40 Mg/0.4 Ml Syringe) 40 mg SUBCUT Q24H [facility] Last Admin: 01/19/23 09:16 Dose: 40 mg Ceftriaxone Sodium 1 gm/ (Sodium Chloride) 50 mls @ 100 mls/hr IV Q24H [facility] Last Infusion: 01/18/23 22:04 Dose: Infused Sodium Chloride (Ns) 1,000 mls @ 125 mls/hr IVCONT .Q8H [facility] Last Admin: 01/19/23 03:47 Dose: 125 mls/hr Ondansetron HCl (Ondansetron Hcl 4 Mg/2 Ml Vial) 4 mg IVPUSH Q8H PRN PRN Reason: Nausea and Vomiting Last Admin: 01/18/23 21:01 Dose: 4 mg Oxycodone HCl (Oxycodone Hcl Immed Release 5 Mg Tablet) 5 mg PO Q6H PRN PRN Reason: Pain, Severe (Pain Scale 7-10) Last Admin: 01/18/23 19:25 Dose: 5 mg Sodium Chloride (0.9 % Sodium Chloride Flush 3 Ml Syringe) 3 ml IVFLUSH QSHIFT [facility] Last Admin: 01/19/23 07:54 Dose: Not Given Home Medications Medication Instructions Recorded Confirmed Last Taken Type No Known Home Meds 01/18/23 01/18/23 Unknown History Physical Exam Vital Signs: Vital Signs: Last Vital Signs Temp 101.1 F H 01/19/23 07:13 Pulse 117 H 01/19/23 07:13 Resp 20 01/19/23 07:13 BP 104/59 L 01/19/23 07:13 Pulse Ox 97 01/19/23 07:13 O2 Del Method Room Air 01/19/23 07:13 O2 Flow Rate 98 01/18/23 00:57 BMI result Body Mass Index 24.7 Const: General: cooperative, healthy appearing and no acute distress Orientation/consciousness: patient oriented x3 HEENT: Head: Yes normal to inspection, Yes normocephalic and Yes atraumatic Eyes: Conjunctivae: conjunctivae normal Neck: Neck: Yes normal visual inspection and Yes trachea midline Chest: Chest palpation & inspection: normal inspection of the chest Resp: Effort & Inspection: normal respiratory effort Cardio: Rate: regular rate GI: Inspection: Yes normal to inspection Palpation (GI): Soft to palpation : General: Yes CVA tenderness (right) Back/Spine/Pelvis: Back: CVA tenderness (right) Skin: General skin exam: no rashes or lesions noted Neuro: General: patient oriented x3 Extrem: General: No edema Psych: Appearance: grossly normal Results Labs 01/18/23 05:09 01/18/23 05:09 Labs: Urine 08/08/23 08/08/23 Range/Units 01:42 01:42 Urine Color Yellow Urine Appearance Cloudy Urine pH 5.5 (5.0-9.0) Ur Specific [place] 1.020 (1.005-1.025) Urine Protein 100 (2+) H (Neg-Trace) mg/dL Urine Glucose (UA) Negative (Negative) mg/dL Urine Test NEGATIVE (NEGATIVE) Imaging Abdomen CT scan report/results: report reviewed and image reviewed CT scan - pelvis: report reviewed and image reviewed Additional studies: Date of Service: 01/18/23 EXAMINATION: CT ABDOMEN AND PELVIS WITHOUT CONTRAST? CLINICAL INFORMATION: Abdominal pain.? COMPARISON: None available. TECHNIQUE: Multidetector volumetric imaging was performed from the superior aspect of the liver through the pubic symphysis. Sagittal and coronal reformatted images were obtained on the technologist's workstation.? This CT examination was performed using dose optimization techniques as appropriate, variously including the following: *Automated exposure control *Adjustment of mA and/or kV according to patient size (this includes techniques or standardized protocols for targeted exams where dose is matched to indication/reason for exam; i.e. extremities or head) *Use of iterative reconstruction technique DLP: 429.02 mGy-cm FINDINGS: LUNG BASES: The visualized lung bases are unremarkable.? LIVER, GALLBLADDER, AND BILIARY TREE: The liver is normal in size, shape, and attenuation. No focal hepatic lesion or biliary ductal dilatation is present. The gallbladder is unremarkable with no evidence of radiopaque gallstones, gallbladder wall thickening, or obvious pericholecystic inflammatory changes.? PANCREAS: Unremarkable.? SPLEEN: Unremarkable.? ADRENAL GLANDS: Unremarkable.? KIDNEYS AND URETERS: There is [id number] right hydronephrosis and hydroureter extending into the pelvis. No definite right ureteric calculi are seen.? BLADDER: Unremarkable.? GASTROINTESTINAL TRACT: The small and large bowel are unremarkable. There is retained stool throughout. The appendix is not definitively identified. ABDOMINAL WALL: No significant hernia is appreciated.? LYMPH NODES: Normal. VASCULAR: Unremarkable. PELVIC VISCERA: Unremarkable.? OSSEOUS STRUCTURES: Unremarkable.? IMPRESSION: [id number] right hydronephrosis and hydroureter extending into the pelvis. No definitive ureteral calculi are seen. Consider recently passed calculus and less likely ascending infection..? Assessment and Plan (1) Hydronephrosis: Status: Acute (2) Pyelonephritis of right kidney: Status: Acute Plan Patient is clinically improving. nontoxic appearing Right hydronephrosis, likely passed right kidney stone Blood c/s negative so far urine c/s pending Cont IV Rocephin Time Spent With Patient Time: Total time managing care of this patient today ____ minutes. Procedures Date of Service Date of Service: 01/20/23
[2023-01-19 15:23] VITALS: BP 114/67; PULSE 65; RESP 14; TEMP 36.9; O2SAT 98
[2023-01-19 19:21] VITALS: BP 122/58; PULSE 95; RESP 14; TEMP 36.4; O2SAT 99
[2023-01-19] MEDS: oxyCODONE HCl Immed Release 5 MG TABLET PO (20:47)
[2023-01-19] MEDS: cefTRIAXone sodium 1 GM in 0.9 % Sodium Chloride 50 ML IV (21:34)
[2023-01-20 01:45] VITALS: TEMP 39.3
[2023-01-20] MEDS: Ketorolac Tromethamine 15 MG/ML VIAL IM (01:47)
[2023-01-20] MEDS: Fluticasone Propionate Nasal 16 GM SPRAY 1 SPRAY NOSTRIL-B (01:47)
[2023-01-20 02:30] VITALS: TEMP 37.9
[2023-01-20] MEDS: Morphine Sulfate 4 MG/ML CARTRIDGE IVPUSH (02:54)
[2023-01-20] MEDS: Acetaminophen 325 MG TABLET 650 MG PO ×2 (02:54→08:58)
[2023-01-20 03:10] LABS: Lactic Acid 0.7 mmol/L (0.5-2.0)
[2023-01-20 03:12] LABS: COVID-19 Test Negative (Negative); IDNOW Serial# 08D9AD1C
[2023-01-20 03:39] VITALS: BP 121/59; PULSE 93; RESP 20; TEMP 36.9; O2SAT 93
[2023-01-20] MEDS: 0.9 % Sodium Chloride 1,000 ML 125 ML IVCONT (05:31)
[2023-01-20 07:58] VITALS: BP 105/56; PULSE 75; RESP 20; TEMP 36.7; O2SAT 94
[2023-01-20] MEDS: Enoxaparin Sodium 40 MG/0.4 ML SYRINGE SUBCUT (08:33)
--- NOTE | 2023-01-20 08:43 | P.PNIM_ITS ---
Subjective Subjective Date of Service: 01/20/23 Interval History: Had a fever or 102 this morning, no flank pain, urine culture gnr Physical Exam Vital Signs: Vital Signs: Last Vital Signs Temp 98.0 F 01/20/23 07:58 Pulse 75 01/20/23 07:58 Resp 20 01/20/23 07:58 BP 105/56 L 01/20/23 07:58 Pulse Ox 94 01/20/23 07:58 O2 Del Method Room Air 01/20/23 07:58 O2 Flow Rate 98 01/18/23 00:57 BMI result Body Mass Index 24.7 Const: Other: General: AO X 3, no acute distress Resp: CTA bilateral CVS: S1,S2,RRR GI: +BS, NT, no distention, no flank tendernes Skin: No rash Neuro: motor grossly intact Psych: appropriate affect Objective Data Active Medications Acetaminophen (Acetaminophen 325 Mg Tablet) 650 mg PO Q6H PRN PRN Reason: Pain, Mild (Pain Scale 1-3) Last Admin: 01/20/23 02:54 Dose: 650 mg Documented By: KATERIN Docusate Sodium (Docusate Sodium 100 Mg Capsule) 100 mg PO DAILY PRN PRN Reason: Constipation Enoxaparin Sodium (Enoxaparin Sodium 40 Mg/0.4 Ml Syringe) 40 mg SUBCUT Q24H [facility] Last Admin: 01/20/23 08:33 Dose: 40 mg Documented By: NEHEMIAS Ceftriaxone Sodium 1 gm/ (Sodium Chloride) 50 mls @ 100 mls/hr IV Q24H [facility] Last Infusion: 01/19/23 22:13 Dose: 0 mls/hr Documented By: KATERIN Sodium Chloride (Ns) 1,000 mls @ 125 mls/hr IVCONT .Q8H [facility] Last Admin: 01/20/23 05:31 Dose: 125 mls/hr Documented By: KATERIN Ondansetron HCl (Ondansetron Hcl 4 Mg/2 Ml Vial) 4 mg IVPUSH Q8H PRN PRN Reason: Nausea and Vomiting Last Admin: 01/18/23 21:01 Dose: 4 mg Documented By: CASSIE Oxycodone HCl (Oxycodone Hcl Immed Release 5 Mg Tablet) 5 mg PO Q4H PRN PRN Reason: Pain, Severe (Pain Scale 7-10) Sodium Chloride (0.9 % Sodium Chloride Flush 3 Ml Syringe) 3 ml IVFLUSH QSHIFT [facility] Last Admin: 01/20/23 08:34 Dose: Not Given Documented By: NEHEMIAS Non-Admin Reason: IV Running Labs 01/18/23 05:09 01/18/23 05:09 Labs: Laboratory Results - last 24 hr 01/20/23 01/20/23 02:55 02:55 Lactic Acid 0.7 COVID-19 ([facility]) Negative COVID-19 Clin Com See Note Microbiology Microbiology Results: Microbiology 01/18/23 Unknown Urine Culture - Final Urine clean catch - Clean Catch Midstream Escherichia coli 01/18/23 00:17 Blood Culture - Preliminary Blood - Venous No growth after 48 hours. 01/18/23 00:17 Blood Culture - Preliminary Blood - Venous No growth after 48 hours. Assessment and Plan (1) Hydronephrosis: Status: Acute Plan 32-year-old female with no significant past medical history comes into the hospital with complaints of right flank pain found to have sepsis # acute sepsis d/t UTI, and Pylonephritis, febrile still, blood culture negative, Urine culture GNR. Continue Ceftriaxone. Uro recommends no intervention for likely Passed stone, #nasal congestionn--[place] DVT prophylaxis: Lovenox Given patient's need for IV antibiotics for acute pyelonephritis is sepsis patient will require minimum 2 nights inpatient hospital stay for further management and monitoring Time Spent With Patient Time: Total time managing care of this patient today ____ minutes. Quality Stroke Does the patient have a stroke diagnosis?: No VTE Prior VTE?: No VTE Risk Level:: Medical - moderate - high VTE Device Contraindication: Treatment Not Indicated VTE Drug Contraindication: N/A - Med Ordered
[2023-01-20] MEDS: Ibuprofen 600 MG TABLET PO (12:17)
[2023-01-20 15:33] VITALS: BP 113/78; PULSE 76; RESP 14; TEMP 37; O2SAT 99
[2023-01-20 19:35] VITALS: BP 110/69; PULSE 71; RESP 16; TEMP 36.3; O2SAT 98
[2023-01-20] MEDS: cefTRIAXone sodium 1 GM in 0.9 % Sodium Chloride 50 ML IV (23:23)
[2023-01-20] MEDS: 0.9 % Sodium Chloride Flush 3 ML SYRINGE IVFLUSH (23:24)
[2023-01-21 04:00] VITALS: BP 128/58; PULSE 94; RESP 17; TEMP 37.6; O2SAT 91
--- NOTE | 2023-01-21 07:00 | P.DS_ITS ---
DS: Providers Provider Date of Service: 01/21/23 Date of admission: 01/18/23 04:07 Primary care physician: None Physician Consults: 01/19/23 07:42 Consult to Urology Routine Consulting Provider: [facility] Reason for consultation: Hydronephrosis, pylo Has provider been notified: No DS: Diagnosis Discharge Diagnosis (1) Hydronephrosis: Status: Acute DS: Summary Hospital Course Hospital Course: Flank pain, fever and chills 32-year-old female with no significant past medical history, Divehi-speaking, history is obtained with the help of an certified court/medical interpreter, comes into the hospital complaints of fever chills, and right flank pain.? Symptoms started 4 days ago.? Associated with some nausea no vomiting, no diarrhea constipation, pain is statin of 10, radiating to the groin, no urinary symptoms including no dysuria or frequency.? Denies any chest pain, no shortness of breath, no headache or change in vision, and no lower extremity edema.? On arrival to the ED patient hemodynamically stable with a fever of 102.7, heart rate of 135, Labs are significant for WBC count of 11.7, hemoglobin of 11.6, hematocrit 34.4, sodium of 132 that normalized after IV fluids, UA positive for leukocyte Estrace, WBC, bacteria Chest x-ray negative Patient started on antibiotics and will be admitted for further management Hospital course: Patient presented with right flank pain, fever chill and was found to have acute pyelonephritis as demonstrated on a CT scan which also showed right-sided hydronephrosis but no evidence of stone. Her renal function was normal. She was admitted and given IV ceftriaxone urine culture ultimately came back positive for E coli that was sensitive to all antibiotics tested. Fever has resolved, she no longer has a right flank pain, she was seen by urologist and believed that she may have passed a stone and did not need any intervention. At this point the patient is doing well and will be transitioned to oral antibiotic (Cefpoxime 200 mg twice daily) to be treated for an additional 7 days. Time Spent with Patient Time attestation: Total time managing care of this patient today ____ minutes. Discharge coordination time: Greater than 30 minutes Quality: Safe Use of Opioids Does Pt have an Active Cancer Diagnosis on the Problem List?: No Quality: Stroke Does the patient have a stroke diagnosis?: No Physical Exam Vital Signs: Vital Signs: Last Vital Signs Temp 99.7 F 01/21/23 04:00 Pulse 94 01/21/23 04:00 Resp 17 01/21/23 04:00 BP 128/58 L 01/21/23 04:00 Pulse Ox 91 L 01/21/23 04:00 O2 Del Method Room Air 01/21/23 04:00 O2 Flow Rate 98 01/18/23 00:57 BMI result Body Mass Index 24.7 Const: Other: General: AO X 3, no acute distress Resp: CTA bilateral CVS: S1,S2,RRR GI: +BS, NT, no distention Skin: No rash Neuro: motor grossly intact Psych: appropriate affect DS: Data Data Completed and Pending Labs on day of discharge: Preliminary micro results at discharge 01/20/23 02:55 Blood Culture - Preliminary Blood - Venous No growth after 24 hours. 01/20/23 02:55 Blood Culture - Preliminary Blood - Venous No growth after 24 hours. 01/18/23 00:17 Blood Culture - Preliminary Blood - Venous No growth after 48 hours. 01/18/23 00:17 Blood Culture - Preliminary Blood - Venous No growth after 48 hours. Discharge Plan Discharge Anticipated Discharge Date/Time: 01/21/23 06:58 Patient Disposition: Home, Self-Care Discharge Diagnosis: Sepsis due to acute Pylonephritis, hydronephrosis Referrals: Physician,None [Primary Care Provider] - 1 Week Discharge Medications: New cefpodoxime 200 mg tablet 200 mg PO BID Qty: 14 0RF Rx Instructions: must administer with a meal/food Discharge Orders: Discharge Order (Routine); Ordered 01/21/23 Ordered By: Niels Jaimes Diet: Advance to usual diet Activity on Discharge: As tolerated Stand Alone Forms: Patient Portal Discharge page Care Plan Goals: Full recovery from acute pyelonephritis and sepsis. Health Concerns: Acute pyelonephritis, sepsis. Plan of Treatment: Take cefpodoxime 200mg twice daily for 7 days, as directed and follow up with her primary care doctor within a week, call for appointment. Retuen to the emergency if your symptoms come back Assessment: As above
[2023-01-21 07:29] VITALS: BP 126/63; PULSE 80; RESP 20; TEMP 37.6; O2SAT 92
[2023-01-21] MEDS: Acetaminophen 325 MG TABLET 650 MG PO (08:34)
--- NOTE | 2023-01-21 09:09 | MHC.CM.PN ---
PT MEDICALLY CLEARED FOR D/C HOME SELF-CARE, PT TO ARRANGE TRANSPORT
== END 2023-01-21 09:21 | disposition home or self-care (01) | DRG 720 ==
LOC: HO.ED 01-18 02:41 → HO.EDOVER 01-18 04:11 → HO.IMC 01-18 17:29
PROVIDERS: Admitting Provider Internal Medicine; Emergency Provider Internal Medicine; Visit Provider Internal Medicine
DX: A41.9 Sepsis, unspecified organism (principal); N13.6 Pyonephrosis; B96.20 Unspecified Escherichia coli [E. coli] as the cause of diseases classified elsewhere; Z88.0 Allergy status to penicillin
CPT/HCPCS: 0241U; 36415; 71045; 74176; 80048; 80053; 81001; 81025; 83605; 83690; 85025; 85027; 87040; 87086; 87088; 87186; 87635; 99285; J0696; J1650; J1885; J2270; J2405

== ENCOUNTER → 2023-01-18 04:07 | Outpatient (BNV) | payer MEDICAID, SELFPAY | PROVIDERS: Admitting Provider Internal Medicine; Emergency Provider Internal Medicine; Visit Provider Urology | DX: N13.30 Unspecified hydronephrosis (principal); N12 Tubulo-interstitial nephritis, not specified as acute or chronic | CPT/HCPCS: 99222 ==

== ENCOUNTER → 2023-01-18 04:07 | Outpatient (BNV) | payer MEDICAID, SELFPAY | PROVIDERS: Admitting Provider Internal Medicine; Emergency Provider Internal Medicine; Visit Provider Internal Medicine | DX: N13.30 Unspecified hydronephrosis (principal) | CPT/HCPCS: 99223; 99232; 99239; 99499 ==

== ENCOUNTER 2023-04-25 12:37 | Outpatient (REF) | payer MEDICAID, SELFPAY ==
[2023-04-25 13:16] LABS: MANUAL DIFF FLAG NO
[2023-04-25 13:42] LABS: Basophils Absolute Auto 0.1 X10*3/uL (0.0-0.2); Basophils Percent Auto 0.7 % (0-2); Eosinophils Absolute Auto 0.4 X10*3/uL (0.0-0.4); Eosinophils Percent Auto 4.3 % (0-4); Hematocrit 38.5 % (37.0-47.0); Hemoglobin 12.2 g/dl (12.0-16.0); Imm Gran Abs Auto 0.02 X10*3/uL (0.00-0.03); Imm Gran Pct Auto 0.2 % (0.0-0.4); Lymphocytes Absolute Auto 2.1 X10*3/uL (1.2-4.9); Lymphocytes Percent Auto 24.3 % (20-40); Mean Corpuscular HGB Conc 31.7 g/dl (31.0-35.0); Mean Corpuscular Hemoglobin 28.2 pg (27.0-33.0); Mean Corpuscular Volume 88.9 fL (80.0-98.0); Mean Platelet Volume 11.4 fL (9.4-12.3); Monocytes Absolute Auto 0.7 X10*3/uL (0.1-1.2); Monocytes Percent Auto 8.5 % (2-11); Neutrophils Absolute Auto 5.3 x10*3/uL (2.0-8.3); Platelet Count 357 X10*3/uL (160-400); Red Blood Count 4.33 X10*6/uL (4.20-5.50); Red Cell Distribution Width 12.6 % (11.0-16.0); White Blood Count 8.5 X10*3/uL (4.8-10.8)
[2023-04-25 14:24] LABS: Iron 74 mcg/dL (30-160); Percent Iron Saturation 22 % (15-50); Total Iron Binding Capacity 334 mcg/dL (228-428); Unsaturated Iron Binding 260 ug/dL
[2023-04-25 14:27] LABS: Ferritin 16 ng/mL (10-122)
[2023-04-25 14:42] LABS: Folate 14.4 ng/mL (> or = 4.0); Vitamin B12 377 pg/mL (200-900)
[2023-04-25 19:41] LABS: Influenza A PCR NEGATIVE (Negative); Influenza B PCR NEGATIVE (Negative); Resp Syncy Virus RNA Qual PCR NEGATIVE (Negative); SARS COV2 PCR INHOUSE NEGATIVE (Negative)
== END 2023-04-25 12:38 | disposition home or self-care (01) ==
LOC: HO.HHCL 12:37
PROVIDERS: Visit Provider Emergency Medicine
DX: R68.89 Other general symptoms and signs (principal); D64.9 Anemia, unspecified; Z11.52 Encounter for screening for COVID-19
CPT/HCPCS: 0241U; 36415; 82607; 82728; 82746; 83540; 85025

== ENCOUNTER 2024-01-03 11:58 | Outpatient (REF) | payer MEDICAID, SELFPAY ==
[2024-01-03 14:01] LABS: MANUAL DIFF FLAG NO
[2024-01-03 14:06] LABS: Basophils Percent Auto 0.6 % (0-2); Eosinophils Absolute Auto 0.1 X10*3/uL (0.0-0.4); Eosinophils Percent Auto 2.1 % (0-4); Hematocrit 36.9 % (37.0-47.0); Hemoglobin 11.9 g/dl (12.0-16.0); Imm Gran Abs Auto 0.02 X10*3/uL (0.00-0.03); Imm Gran Pct Auto 0.4 % (0.0-0.4); Lymphocytes Absolute Auto 1.7 X10*3/uL (1.2-4.9); Lymphocytes Percent Auto 33.9 % (20-40); Mean Corpuscular HGB Conc 32.2 g/dl (31.0-35.0); Mean Corpuscular Hemoglobin 28.1 pg (27.0-33.0); Mean Corpuscular Volume 87.2 fL (80.0-98.0); Mean Platelet Volume 11.7 fL (9.4-12.3); Monocytes Absolute Auto 0.5 X10*3/uL (0.1-1.2); Monocytes Percent Auto 10.1 % (2-11); Neutrophils Absolute Auto 2.7 x10*3/uL (2.0-8.3); Neutrophils Percent Auto 52.9 % (45-73); Platelet Count 325 X10*3/uL (160-400); Red Blood Count 4.23 X10*6/uL (4.20-5.50); Red Cell Distribution Width 13.5 % (11.0-16.0); White Blood Count 5.1 X10*3/uL (4.8-10.8)
[2024-01-03 14:18] LABS: Estimated Average Glucose 97 mg/dL
[2024-01-03 14:35] LABS: Alanine Aminotransferase 18 U/L (0-31); Albumin Level 4.2 g/dL (3.5-5.0); Alkaline Phosphatase 61 U/L (39-117); Anion Gap 12 (12-20); Aspartate Amino Transferase 18 U/L (5-31); Bilirubin Total 0.5 mg/dL (0.0-1.0); Blood Urea Nitrogen 10 mg/dL (9-16); Calcium 9.8 mg/dL (8.4-10.2); Carbon Dioxide 27 mmol/L (22-29); Chloride 104 mmol/L (96-108); Cholesterol 145 mg/dL (<200); Estimated Glomerular Filt Rate > 60; Glucose Random 87 mg/dL (60-115); HDL Cholesterol 49 mg/dL (>40); LDL Cholesterol Calculated 89 mg/dL (<100); Sodium 139 mmol/L (135-145); Total Protein 7.4 g/dL (6.5-8.0); Triglycerides 37 mg/dL (<150)
[2024-01-03 14:53] LABS: TSH reflex Free T4 0.45 uIU/mL (0.32-4.0)
[2024-01-04 08:30] LABS: Syphilis Screen Nonreactive (Nonreactive)
[2024-01-04 08:47] LABS: HIV AB/AG Nonreactive (Nonreactive); HIV Num 1 0.05 S/CO (0.00-0.99); ~HepC Num1 0.14 S/CO (0.00-0.79); ~Hepatitis C Antibody Nonreactive (Nonreactive)
== END 2024-01-03 11:59 | disposition home or self-care (01) ==
LOC: HO.CHCLDS 11:58
PROVIDERS: Visit Provider Internal Medicine
DX: R53.83 Other fatigue (principal); Z20.2 Contact with and (suspected) exposure to infections with a predominantly sexual mode of transmission
CPT/HCPCS: 36415; 80053; 80061; 83036; 84443; 85025; 86780; 86803; 87389

== ENCOUNTER 2024-01-18 18:15 | Outpatient (REF) | payer MEDICAID, SELFPAY ==
[2024-01-21 11:29] LABS: HPV mRNA E6/E7 Not Detected (Not Detected)
== END 2024-01-18 18:16 | disposition home or self-care (01) ==
LOC: HO.CHCLNP 18:15
PROVIDERS: Visit Provider Internal Medicine
DX: Z01.419 Encounter for gynecological examination (general) (routine) without abnormal findings (principal)
CPT/HCPCS: 36415; 87624; 88175

== ENCOUNTER 2024-03-22 12:48 | Outpatient (REF) | payer MEDICAID, SELFPAY ==
--- NOTE | ~2024-03-22 | US_ITS ---
EXAMINATION: MM DIAGNOSTIC DIGITAL BREAST TOMOSYNTHESIS, BILATERAL US BREAST LIMITED, RIGHT MAMMOGRAPHY: CLINICAL INFORMATION: Palpable abnormality right breast 1:00 axis superior to nipple. Baseline examination. No prior surgeries. No family history of breast CA. COMPARISON: Mammography: None. Baseline exam. TECHNIQUE: Digital breast tomosynthesis is performed in both the craniocaudal and mediolateral oblique views along with computer-aided detection (CAD). Synthesized 2D images are generated from the tomosynthesis. FINDINGS: The breasts are heterogeneously dense, which may obscure small masses (ACR BI-RADS breast composition Category c). There are bilateral numerous circumscribed round and oval masses in the right greater than left breasts. These are statistically benign, related to numerous cysts or benign fibroadenomas. An oval circumscribed mass within the 1:00 axis right breast approximately 4 cm from the nipple correlates well with the palpable focus of marked by the technologist with the aid of the patient. This will be interrogated with ultrasound. There are no suspicious masses, suspicious grouped calcifications, or areas of architectural distortion in either breast. There is no skin or axillary abnormality. ULTRASOUND: CLINICAL INFORMATION: As above. COMPARISON: None TECHNIQUE: Targeted sonographic evaluation right breast was performed using a high frequency linear transducer. Right breast was scanned from the 9:00 to the 2:00 axis, to include the area of palpable concern. Selected archived documentation. FINDINGS: RIGHT BREAST: -Within the 1:00 axis of the right breast, 4 cm from the nipple, there is a simple bilobed cyst measuring 2.5 x 1.5 x 2.0 cm, correlating with the focus of palpable concern. This finding is benign. There are several large adjacent cysts more inferolaterally, the largest at 10:00 measuring up to 5.3 x 4.7 x 1.6 cm. A few smaller simple cysts are also present in this region. No suspicious findings are evident. US/US breast RT limited mamm only IMPRESSION: -There are no findings in either breast suspicious for malignancy. -There are numerous benign cysts cysts in the right breast as described. A cyst at 1:00 correlates well with the focus of palpable concern. This is benign. -There are similar smaller oval and round circumscribed in the left breast. The findings are consistent with bilateral cysts. -Recommend the patient resume routine annual screening mammography at age 42. OVERALL ASSESSMENT: Mammography: BI-RADS 2 - Benign Findings Ultrasound: BI-RADS 2 - Benign Findings RECOMMENDATION: Mammo at 40 or earlier if clinically needed Electronically signed by: Srini Marie MD 03/22/2024 04:08 PM EDT
== END 2024-03-22 12:49 | disposition home or self-care (01) ==
LOC: HO.MAMMO 12:48
PROVIDERS: PCP Family Medicine; Visit Provider Family Medicine
DX: N64.4 Mastodynia (principal)
CPT/HCPCS: 76642; 77062; 77066

== ENCOUNTER → 2024-03-22 12:52 | Outpatient (BNV) | payer MEDICAID, SELFPAY | PROVIDERS: PCP Family Medicine; Visit Provider Radiology Diagnostic Radiology | DX: N60.21 Fibroadenosis of right breast (principal); N60.01 Solitary cyst of right breast | CPT/HCPCS: 76642; 77062; 77066 ==

== ENCOUNTER 2024-04-05 17:23 | Outpatient (REF) | payer MEDICAID, SELFPAY ==
[2024-04-05 17:28] LABS: Appearance Urine Clear; Color Urine Yellow; Glucose Urine UA Negative (Negative); Leukocyte Esterase Urine Trace (Negative); Nitrite Urine Negative (Negative); PH 7.5 (5.0-9.0); UMIC TRIGGER UACC YES; Urine Blood Negative (Negative); Urine Ketones Negative (Negative); Urine Protein Negative (Neg-Trace)
[2024-04-05 17:31] LABS: Bacteria Urine 4+ (None Seen); Hyaline Casts Urine 0-2 /LPF (0-2); RBC Urine 0-2 /HPF (0-2); Squamous Epithelial Cell Urine 0-2 /HPF (0-2); WBC Urine 0-5 /HPF (0-5)
== END 2024-04-05 17:24 | disposition home or self-care (01) ==
LOC: HO.HHCLNP 17:23
PROVIDERS: Visit Provider Family Medicine
DX: R10.31 Right lower quadrant pain (principal)
CPT/HCPCS: 36415; 81001

== ENCOUNTER 2024-04-23 16:01 | Outpatient (REF) | payer MEDICAID, SELFPAY | END 2024-04-23 16:02 | disposition home or self-care (01) | LOC: HO.US 16:01 | PROVIDERS: PCP Internal Medicine; Visit Provider Family Medicine | DX: R10.31 Right lower quadrant pain (principal) | CPT/HCPCS: 76830; 76856 ==

== ENCOUNTER 2024-08-08 12:10 | Outpatient (REF) | payer MEDICAID, SELFPAY ==
--- OUTSIDE RECORDS SUMMARY | 2024-08-08 19:37 | XMS_ITS | Encounter Summary ---
Author Organization [employer] Address [address] [facility] 7 [place] [address] Care Team Providers Care Civil Preparedness Coordinator Name Role Phone Colby Shore MD Primary Care Prov ider Reason for Visit * Reason Onset Date Comments triage 07/16/2024 Encounter Details Date Type Department Care Team ([facility] st Contact Info) Description 07/16/2024 Telephone [facility] CHC MED & PEDS [address] [place], [place] [phone] Colby Shore MD [address] [place] [address] triage Social History Tobacco Use Types Packs/Day Years Used Date Smoking Tobacco: Former Cigarettes Q uit: 2019 Passive Smoke Exposure: Never Smokeless Tobacco: Never Alcohol Use Standard Drinks/Week Comments Yes 0 (1 standard drink = 0.6 oz pur e alcohol) social Depression Answer Date Recorded Patient Health Questionnaire-9 Score 0 12/13/2023 Patient Health Questionnaire-9 Score 0 12/13/2023 Last PHQ-9: Questionnaire Data Not on file 0 12/13/2023 Housing Stability Answer Date Recorded What is your housing situation today? I have zainab palomo 12/06/[address] you li ve. Do you have problems with any of the following? None of the above 12/06/2023 Food Insecurity Answer Date Recorded Within the past 12 months, y ou worried that your food would run out before you got money to buy more: Never True 12/06/2023 Within the past 12 months,th e food you bought just didn't last and you didn't have enough money to get more: Never True Transportation Answer Date Recorded In the past 12 months, has l ack of transportation kept you from medical appts, meetings, work or from getting things needed for daily living? No 12/06/2023 Utilities Answer Date Recorded In the past 12 months, has t he electric, gas, oil or water company threatened to shut off services in your home? No 12/06/2023 Depression Answer Date Recorded Patient Health Questionnaire-2 Score 0 12/13/2023 Internet Access Answer Date Recorded Internet Access Q1 Yes 02/13/2024 Internet Access Q2 Not on file 02/13/2024 Comments Unknown Sex and Gender Information Value Date Recorded Sex Assigned at Female 04/20/2023 11:55 AM EST Legal Sex Female 2:04 PM EDT Gender Identity Female 04/20/2023 11:51 AM EST Sexual Orientation Straight 04/20/2023 11 :53 AM EST documented as of this encounter Miscellaneous Notes * Telephone Encounter - Maday Reddy RN - 07/16/2024 11:27 AM EST Triage call x3 with [facility] [place] [id number], Benny. Pt didn't answer or was hanging up with call. Continuous Miner Operator Helper wasn't sure why the call wasn't connecting. Unable to leave voice message. * Telephone Encounter - Ainsley Maradiaga - 07/16/2024 10:56 AM EST Pt requesting appt w/ sewing inspector stated every time before her menstrual cycle she gets bv or yeast. Pt stated she's spoken to pcp about it and requesting an appt documented in this encounter Plan of Treatment Upcoming Encounters Date Type Department Care Team (Late st Contact Info) Description 11/19/2024 10:00 AM EDT Office Visit [facility] ADULT DENTAL [address] [place] [address] Roxi, Fior [address] [place] [address] documented as of this encounter Visit Diagnoses Not on filedocumented in this encounter Additional Health Concerns Assessment Noted Time PHQ-9 Depression Total Score: 0 12/13/19 9:46 AM EDT documented as of this encounter Care Teams Civil Preparedness Coordinator Relationship Specialty Start Date End Date Colby Shore MD [address] [place] [phone] PCP - General Internal Medicine 12/13/23 documented as of this encounter
--- OUTSIDE RECORDS SUMMARY | 2024-08-08 19:37 | XMS_ITS | Encounter Summary ---
Author Organization [employer] Address [address] [facility] [address] [place] [address] Care Team Providers Care Business Insight And Analytics Manager Name Role Phone Colby Shore MD Primary Care Prov ider Reason for Visit * Reason Comments Gynecologic Exam Yeast and BV prior t o menses every month Encounter Details Date Type Department Care Team (Latest Contact Info) Description 08/08/2024 11:30 AM EST Office Visit [facility] [address] [place] [address] Natali Cifuentes CN [address] [place] [address] Vaginal discharge (Primary Dx); Herpes simplex infection of genitourinary system Social History Tobacco Use Types Packs/Day Years Used Date Smoking Tobacco: Former Cigarettes Passive Smoke Exposure: Past Smokeless Tobacco: Never Tobacco Cessation:Counseling Given: Not Answered Alcohol Use Standard Drinks/Week Comments Yes 0 [...] Access Q2 Not on file 02/13/2024 Comments No Sex and Gender Information Value Date Recorded Sex Assigned at Female 04/20/2023 11:55 AM EST Legal Sex Female 2:04 PM EDT Gender Identity Female 04/20/2023 11:51 AM EST Sexual Orientation Straight 04/20/2023 11 :53 AM EST documented as of this encounter Last Filed Vital Signs Vital Sign Reading Time Taken Comments Blood Pressure 106/63 08/08/2024 11:38 AM EST Pulse 65 08/08/2024 11:38 AM EST Temperature 36.6 ??C (97.9 ??F) 08/08/2024 11:[address] Respiratory Rate 20 08/08/2024 11:38 AM EST Oxygen Saturation 97% 08/08/2024 11:38 AM EST Inhaled Oxygen Concentration - - Weight 61.5 kg (135 lb 9.6 oz) 08/08/2024 11:38 AM EST Height 157.5 cm (5' 2 ) 08/08/2024 11:38 AM EST Body Mass Index 24.8 08/08/2024 11:38 AM EST documented in this encounter Progress Notes * Natali Cifuentes CNM - 08/08/2024 11:30 AM EST Subjective Patient ID: Junie Herrera is a 33 y.o. female who presents for vaginal symptoms Here with AMAB partner who remained for visit with Junie's consent. Notes HSV outbreaks prior to menses alternating with vulvovaginal candidiasis prior to menses for past year or so. Monthly mensesx 7 days, no heavy flow. Notes itching currently. Has used OTC antifungals to treat yeast symptoms.Not on any antiviral treatment for herpes. Notes some vaginal pain with sex. AMAB partner x 3y, he is uncircumcised, asymptomatic. Pap NIL/HPV neg 01/2024. HIV neg, hemoglobin A1C 5 in 12/2023. Has tubal ligation. Two small right ovarian cysts seen on ultrasound 04/2024, no followup needed. Patient seen in conjunction with MIGUEL Mckee student. I was present for and confirmed all pertinent elements in the history, exam, assessment of the patient, and the plan of care, and agree with all findings. Review of Systems Genitourinary: Positive for dyspareunia, vaginal discharge and vaginal pain. Negative for dysuria, menstrual problem, pelvic pain and vaginal bleeding. Objective BP 106/63 (BP Location: Left arm, Patient Position: Sitting, BP Cuff Size: Adult) Pulse 65 Temp97.9 ??F (36.6 ??C) (Temporal) Resp 20 Ht 5' 2 (1.575 m) Wt 135 lb 9.6 oz (61.5 kg) SpO2 97% BMI 24.80 kg/m?? Physical Exam Exam conducted with a machinist apprentice present (Natali Cifuentes CNM). Constitutional: Appearance: Normal appearance. Genitourinary: General: Normal vulva. Labia: Right: No rash, tenderness, lesion or injury. Left: No rash, tenderness, lesion or injury. Vagina: No signs of injury and foreign body. Vaginal discharge present. No erythema, tenderness, bleeding, lesions or prolapsed vaginal kwong. Cervix: Normal. No cervical motion tenderness, discharge, friability, lesion, erythema, cervical bleeding or eversion. Uterus: Not enlarged and not tender. Adnexa: Right: No mass, tenderness or fullness. Left: No mass, tenderness or fullness. Neurological: Mental Status: She is alert. Psychiatric: Mood and Affect: Mood normal. Behavior: Behavior normal. Assessment/Plan Diagnoses and all orders for this visit: Vaginal discharge - POCT fern test, vaginal fluid manually resulted - Bacterial Vaginosis Panel - Chlamydia/N. Gonorrhoeae RNA, TMA, Urogenitial No obvious vaginitis. Will send vaginal swab testing and treat as indicated. If vulvovaginal candidiasis, would advise partner to treat with Lotrimin AF twice daily x 7 days while Junie is being treated. Avoid scented products near vagina. Herpes simplex infection of genitourinary system Yeast symptoms may be subclinical outbreaks. Let's try suppressive antivirals and see if that helps. If recurrent symptoms, please come in for evaluation. Other orders - valACYclovir (Valtrex) 500 MG tablet; Take 1 tablet (500 mg) by mouth Once per day. documented in this encounter Plan of Treatment Upcoming Encounters Date Type Department Care Team (Late st Contact Info) Description 11/19/2024 10:00 AM EDT Office Visit [facility] ADULT DENTAL [address] [place], [place] [phone] Roxi, Fior [address] [place] [address] Scheduled Orders Name Type Priority Associated Diagnoses Orde r Schedule Bacterial Vaginosis Panel Microbiology Routine Vaginal discharge Ordered: 08/08/2024 Chlamydia/N. Gonorrhoeae RNA, TMA, Urogenitial Microbiology Routine Vaginal discharge Ordered: 08/08/2024 documented as of this encounter Procedures Procedure Name Priority Date/Time Associated Diagnosis Comments POCT WET MOUNT/WILLY Routine 08/08/2024 12 :16 PM EST Vaginal discharge documented in this encounter Results * POCT fern test, vaginal fluid manually resulted (08/08/2024 12:16 PM EST) WILLY Prep Negative Comment:pH 4.5, neg whiff, n eg clue, neg trich, neg yeast, neg wbc Vaginal Fluid Vaginal structure / Unknown 08/08/2024 12:16 PM EST Natali Cifuentes CNM POINT OF CARE TEST ENTER/ EDIT ORDERABLES Final Result documented in this encounter Visit Diagnoses Diagnosis Vaginal discharge- Primary Leukorrhea, not specified as infective Herpes simplex infection of genitourinary system documented in this encounter Additional Health Concerns Assessment Noted Time PHQ-9 Depression Total Score: 0 12/13/19 24 9:46 AM EDT documented as of this encounter Care Teams Business Insight And Analytics Manager Relationship Specialty Start Date End Date Colby Shore MD [address] [place] [id number] PCP - General Internal Medicine 12/13/23 documented as of this encounter
--- OUTSIDE RECORDS SUMMARY | 2024-08-08 19:37 | XMS_ITS | Encounter Summary ---
Author Organization [employer] Address [address] [facility] [address] [place] [address] Care Team Providers Care Insurance Solicitor Name Role Phone Colby Shore MD Primary Care Prov ider Encounter Details Date Type Department Care Team (Latest Contact Info) Description 08/08/2024 Travel Social History Tobacco Use Types Packs/Day Years Used Date Smoking Tobacco: Former Cigarettes Passive Smoke Exposure: Past Smokeless Tobacco: Never Alcohol Use Standard Drinks/Week Comments Yes 0 (1 standard drink = 0.6 oz pur e alcohol) social Depression Answer Date Recorded Patient Health Questionnaire-9 Score 0 12/13/2023 Patient Health Questionnaire-9 Score 0 12/13/2023 Last PHQ-9: Questionnaire Data Not on file 0 12/13/2023 Housing Stability Answer Date Recorded What is your housing situation today? I have zainabvamshi palomo 12/06/[address] you [...] AM EST documented as of this encounter Plan of Treatment Upcoming Encounters Date Type Department Care Team (Late st Contact Info) Description 11/19/2024 10:00 AM EDT Office Visit [facility] ADULT DENTAL [address] [place] [address] Roxi, Fior [address] [place] [address] documented as of this encounter Visit Diagnoses Not on filedocumented in this encounter Additional Health Concerns Assessment Noted Time PHQ-9 Depression Total Score: 0 12/13/19 9:46 AM EDT documented as of this encounter Care Teams Insurance Solicitor Relationship Specialty Start Date End Date Colby Shore MD [address] [place] [address] PCP - General Internal Medicine 12/13/23 documented as of this encounter
--- OUTSIDE RECORDS SUMMARY | 2024-08-08 19:37 | XMS_ITS | Encounter Summary ---
Author Organization [email or web address] Address [address] [facility] 7 [place] [address] Care Team Providers Care Cloth Finisher Name Role Phone Colby Shore MD Primary Care Prov ider Reason for Visit * Reason Onset Date Comments Referral 08/06/2024 Encounter Details Date Type Department Care Team ([facility] st Contact Info) Description 08/06/2024 Telephone [facility] CHC MED & PEDS [address] [place], [place] [phone] Colby Shore MD [address] [place] [address] Referral Social History Tobacco Use Types Packs/Day Years [...] encounter Miscellaneous Notes * Telephone Encounter - Etelvina Garner RN - 08/06/2024 1:07 PM EST Called pt. Via S maintenance groundman [phone] [address]. Pt, states that every time prior to her menses she gets yeast infections and BV almost every month prior to menses. Pt has mentioned this to PCP in past and she wants to see SEMICONDU[employer] TESTING GROUP LEADER. Appt. Made for 08/08/24 in [facility] SEMICONDUCTOR TESTING GROUP LEADER schedule for 1130am on second floor where green team is located. Pt. Not currently with [facility]. But wants to see SEMICONDUCTOR TESTING GROUP LEADER. Protocol Used: Vaginal Discharge (Adult) Protocol-Based Disposition: See in Office or Video Visit Today- appt. 08/08/24 at 1130am in [facility]. Positive Triage Questions: * Patient wants to be seen * Bad smelling vaginal discharge * Symptoms of a yeast infection (i.e., itchy, white discharge, not bad smelling) and not improved > 3 days following Care Advice * 4 or more episodes of vaginal infection in past year * All higher-acuity triage questions were negative * Telephone Encounter - Luis Castanon - 08/06/2024 1:00 PM EST Images from the original note were not included. Patient requesting a f/u info related to message on 07/16/24. Informed pt she was called and no answer. Patient once again would like a call to numbers provided below. Contact Information [phone] ([employer]) [phone] documented in this encounter Plan of Treatment Upcoming Encounters Date Type Department Care Team ([facility] st Contact Info) Description 11/19/2024 10:00 AM EDT Office Visit [facility] ADULT DENTAL [address] [place], [place] [phone] Roxi, Fior [address] [place] [address] documented as of this encounter Visit Diagnoses Not on filedocumented in this encounter Additional Health Concerns Assessment Noted Time PHQ-9 Depression Total Score: 0 12/13/19 9:46 AM EDT documented as of this encounter Care Teams Cloth Finisher Relationship Specialty Start Date End Date Colby Shore MD [address] [place] [phone] PCP - General Internal Medicine 12/13/23 documented as of this encounter
--- OUTSIDE RECORDS SUMMARY | 2024-08-08 19:37 | XMS_ITS | Clinical Summary ---
Author Organization [employer] Address [address] [facility] [address] [place] [address] Care Team Providers Care Pipefitter Name Role Phone Colby Shore MD Primary Care Prov ider Allergies Active Allergy Reactions Criticality Noted Date Comments Amoxicillin Anaphylaxis High 04/21/2023 Medications Sod Fluoride-Potass ium Nitrate 1.1-5 % paste [place] teeth for 2 minutes, morning and night. Spit, do not rinse. Do not eat or drink anything for 30 minutes following brushing. 112 g 3 4 Active naproxen (Naprosyn) 500 MG tablet Take 1 tablet (500 mg) by mouth if needed in the morning and at bedtime for mild pain. 40 tablet 1 4 02/23/20 25 Active fluticasone (Flonase Allergy Relief) 50 MCG/ACT nasal sprayIndication s:Non-seasonal allergic rhinitis due to other allergic trigger Administer 1 spray into each nostril Once per day. Shake gently. Before first use, prime pump. After use, clean tip and replace cap. 16 g 12 5 06/18/19 26 Active fexofenadine (Maite) 180 MG tabletIndicatio ns:Non-seasonal allergic rhinitis due to other allergic trigger Take 1 tablet (180 mg) by mouth if needed each day (Allergies). 30 tablet 2 5 09/17/19 25 Active valACYclovir (Valtrex) 500 MG tablet Take 1 tablet (500 mg) by mouth Once per day. 30 tablet 11 5 08/08/19 26 Active Active Problems Problem Noted Date Diagnosed Date Right lower quadrant abdominal pain 04/05/2024 Assessment & Plan (04/05/2024 10:34 AM EDT): Right mid/lower abd pain x1 week. Worsened pain with urination. No other urinary symptoms. -STI testing ordered -Urine dip with grossly negative. -ordered transvaginal US -sent UCG-urine -urine and culture sent to the lab -Empiric antibiotics started -Potential adverse effects of the medication reviewed -Discussed strategies to prevent future infections: Increase fluids. Urinate after sex. Avoid bladder irritants. -Advised to seek medical attention if no improvement or worsening of symptoms -ER precautions reviewed. Encounter for medical examination to establish c are 01/30/2024 Assessment & Plan (01/30/2024 10:39 PM EDT): Not seen a pcp in over 7 years Er visit in the past due to uti which required hospitalization Pmhx: - Pshx: appendectomy 2021, csec , tubal ligation on 2016 All: pnc Meds: zyrtec otc Other fatigue 01/30/2024 Assessment & Plan (01/30/2024 10:43 PM EDT): Labs will be ordered for evalaution of secondary causes Dental calculus 12/07/2023 Gingival bleeding 12/07/2023 Periodontal disease 12/07/2023 Dental plaque 09/09/2023 Pyelonephritis of right kidney 04/25/2023 Encounters Date Type Department Care Team Description 08/08/2024 11:30 AM EST Office Visit [facility] [address] [place] [address] Natali Cifuentes CNM Vaginal discharge (Primary Dx); Herpes simplex infection of genitourinary system 08/08/2024 Travel 08/06/2024 Telephone [facility] [address] [place] [address] Colby Shore MD Referral 07/16/2024 Telephone [facility] [address] [place] [address] Colby Shore MD triage 06/25/2024 Telephone [facility] [address] [place] [address] Colby Shore MD 06/20/2024 Telephone [facility] [address] [place] [address] Colby Shore MD 06/18/2024 11:00 AM EST Office Visit [facility] [address] [place] [address] Altagracia Silva MD Non-seasonal allergic rhinitis due to other allergic trigger (Primary Dx); Sore throat 06/18/2024 Travel 06/08/2024 Telephone [facility] [address] [place] [address] Colby Shore MD Nurse Triage 05/16/2024 3:00 PM EST Office Visit [facility] [address] [place] [address] Fior Diane Dental calculus (Primary Dx) from Last 3 Months Immunizations Name Administration Dates Next Due Influenza, seasonal, injectable, preservative fr ee 02/23/2024 Family History Medical History Relation Name Comments No Known Problems Father No Known Problems Mother Cancer Neg Hx Relation Name Status Comments Father Mother Social History Tobacco Use Types Packs/Day Years [...] Orientation Straight 04/20/2023 11 :53 AM EST Last Filed Vital Signs Vital Sign Reading [...] Mass Index 24.8 08/08/2024 11:38 AM EST Plan of Treatment Upcoming Encounters Date Type Department Care Team (Late st Contact Info) Description 11/19/2024 10:00 AM EDT Office Visit [facility] [address] [place] [address] Roxi, Fior [address] [place] [address] Health Maintenance Due Date Last Done Comments Alcohol/Substance Use Screening 2004 DTaP/Tdap/Td Vaccines (1 - Tdap) 11/30/2011 Hepatitis B Vaccines (1 of 3 - 19+ 3-dose series) 11/30/2011 COVID-19 Vaccine (1 - 2023-2 5 season) 2024 Dental Oral Exam 03/12/2024 09/09/2023, 04/21/2023 Dental X-Ray: Bitewings 09/09/2024 09/09/19 24, 04/21/2023 Dental Prophylaxis 11/15/2024 05/16/2024, 12/07/2023, 04/21/2023 Depression Screening 12/12/2024 12/13/2023, 12/13/2023 SDOH Screening 12/12/2024 12/13/2023 Family Planning (PISQ) 08/08/2025 08/08/2024 Tobacco Screening 08/08/2025 08/08/2024 Dental X-Ray: Full Mouth 04/22/2026 04/21/2023 Cervical Cancer Screening 01/17/2029 HPV/Cotest 01/17/2029 01/18/2024 Pap Smear 01/17/2029 01/18/2024 Zoster Vaccines (1 of 2) 2042 RSV Patients and Patients Aged 60 years or older (1 - 1-dose 75+ series) 11/30/2067 HIV Screening Completed 01/03/2024 Hepatitis C Screening Completed 01/03/2024 Influenza Vaccine Completed 02/23/2024 HIB Vaccines Aged Out No longer eligi ble based on patient's age to complete this topic HPV Vaccines Aged Out No longer eligi ble based on patient's age to complete this topic Hepatitis A Vaccines Aged Out No long er eligible based on patient's age to complete this topic IPV Vaccines Aged Out No longer eligi ble based on patient's age to complete this topic Meningococcal Vaccine Aged Out No camden lorenzo eligible based on patient's age to complete this topic Pneumococcal Vaccine: Pediatrics (0 to 5 Years) and At-Risk Patients (6 to 49) Years) Aged Out No longer eligible b ased on patient's age to complete this topic RSV under 20 months Aged Out No longe r eligible based on patient's age to complete this topic Rotavirus Vaccines Aged Out No longer eligible based on patient's age to complete this topic Procedures Procedure Name Priority Date/Time Associated Diagnosis Comments POCT WET MOUNT/WILLY Routine 08/08/2024 12 :16 PM EST Vaginal discharge POCT RAPID STREP A Routine 06/18/2024 3: 16 PM EST Sore throat CASE PRESENTATION, DETAILED AND EXTENSIVE TREATMENT PLANNING Routine 05/16/2024 3:00 PM EST Dental calculus ORAL HYGIENE INSTRUCTIONS Routine 05/16/2024 3:00 PM EST Dental calculus PROPHYLAXIS - ADULT Routine 05/16/2024 3 :00 PM EST Dental calculus THINPREP IMAGING PAP AND HPV MRNA E6/E7 Routine 01/18/2024 10:33 AM EDT HEPATITIS C AB W/REFL TO HCV RNA, QN, PCR Routine 01/03/2024 12:05 PM EDT Possible exposure to STD HIV 1/2 ANTIGEN/ANTIBODY, FOURTH GENERATION W/RFL Routine 01/03/2024 12:05 PM EDT Possible exposure to STD BITEWINGS - 4 RADIOGRAPHIC IMAGES Routine 09/09/2023 9:00 AM EDT PERIODIC ORAL EVALUATION - ESTABLISHED PATIENT Routine 09/09/2023 9:00 AM EDT INTRAORAL - COMPLETE SERIES OF RADIOGRAPHIC IMAGES Routine 04/21/2023 8:00 AM EST Dental calculus from Last 3 Months or Most Recently Relevant to Health Maintenance Results * POCT fern test, vaginal fluid manually resulted (08/08/2024 12:16 PM EST) Pathologist [facility] WILLY Prep Negative Comment:pH 4.5, neg whiff, n eg clue, neg trich, neg yeast, neg wbc Vaginal Fluid Vaginal structure / Unknown 08/08/2024 12:16 PM EST Natali Cifuentes CNM POINT OF CARE TEST ENTER/ EDIT ORDERABLES Final Result * POCT Rapid Strep A OSOM (06/18/2024 3:16 PM EST) Pathologist [facility] Rapid Strep A Screen Negative Negative, None Detected QC Media Lot # [id number] Lot# Expiration Date [id number] Swab 06/18/2024 3:16 PM EST us Altagracia Silva MD POINT OF CARE TEST ENTER/ED IT ORDERABLES Final Result * ThinPrep Imaging Pap and HPV mRNA E6/E7 (01/18/2024 10:33 AM EDT) HPV nRNA E6/E7 Not Detected Not Detected [facility] Comment:Methodology: Transcr iption-Mediated AmplificationThis assay detects E6/E7 viral messenger RNA (mRNA) from 14high-risk HPV types (16,18,31,33,35,39,45,51,52,56,58,59,66,68).Cervical sources are required for HPV testing.If a vaginal source from a patient who has had atotal hysterectomy with removal of cervix wassubmitted, please contact the testing laboratoryfor alternative testing options.For additional information, please refer [email or web address]/faq/[email or web address](This link if provided for information/educational purposes only.)THIS TEST WAS PERFORMED AT:[facility] [address] [id number] BARBOSA MD SOURCE: SEE NOTE [facility] Comment:None given Report Status: [facility] Clinical Information: SEE NOTE [facility] Comment:None given LMP: SEE NOTE [facility] Comment:NONE GIVEN Prev. PAP: SEE NOTE [facility] Comment:NONE GIVEN Prev. BX: SEE NOTE [facility] Comment:NONE GIVEN Statement Of Adequacy: SEE NOTE [facility] Comment:Satisfactory for jose luation.Endocervical/transformation zone componentpresent. General Categorization: [facility] Interpretation/Result: SEE NOTE [facility] Comment:Cytology Results: Ne gative for intraepitheliallesion or malignancy. Cytology Comment SEE NOTE [facility] Comment:This Pap test has be en evaluated with computerassisted technology. Lead Setter: SEE NOTE [facility] Comment:SL, CT(ASCP)CT scree rasta location: [place] [address] Review Lead Setter: [facility] Pathologist TNP [facility] PAP Infection TNP [facility] See Note SEE NOTE [facility] Comment:EXPLANATORY NOTE:The Pap is a screening test for cervical cancer. It isnot a diagnostic test and is subject to false negativeand false positive results. It is most reliable when asatisfactory sample, regularly obtained, is submittedwith relevant clinical findings and history, and whenthe Pap result is evaluated along with historic andcurrent clinical information. 01/18/2024 10:3 3 AM EDT 01/18/2024 6:16 PM EDT Narrative [facility] - 01/24/2024 1:24 PM EDT SEE SCANNED RESULTS IN EMR Colby Bartlett MD LAB PATHOLOGY ORDE RABLES Final Result Performing Organization Address [facility]/ZIP Co de Phone Number [facility] [address] [place] [phone] * Hepatitis C Antibody with Reflex to HCV, RNA, Quantitative, Real-Time PCR (01/03/2024 12:05 PM EDT) Hepatitis C Antibody Nonreactive Nonreactive [facility] Comment:Antibodies to HCV no t detected; does not exclude early acuteHCV infection. Blood Venous blood specimen / Unknown 01/03/2024 12:05 PM EDT 01/03/2024 1:58 PM EDT Colby Bartlett MD LAB BLOOD ORDERABL ES Final Result Performing Organization Address [facility]/ZIP Co de Phone Number [facility] [address] [place] [address] [phone] * HIV-1/2 Antigen and Antibodies, Fourth Generation, with Reflexes (01/03/2024 12:05 PM EDT) HIV AB/AG Nonreactive Nonreactive [facility] Comment:HIV-1 p24 Ag and/or HIV-1/HIV-2 Ab not detected.A test result that is nonreactive does not exclude thepossibility of exposure to or infection with HIV-1 and/orHIV-2. Nonreactive results in this assay for individualswith prior exposure to HIV-1 and/or HIV-2 may be due toantigen and antibody levels that are below the limit ofdetection of this assay.The [employer] HIV Ag/Ab Combo assay result andsupplemental assay results should be interpreted inconjunction with the patient's clinical presentation,history and other laboratory results. If the results areinconsistent with clinical evidence, additional testing issuggested to confirm the result. Blood Venous blood specimen / Unknown 01/03/2024 12:05 PM EDT 01/03/2024 1:58 PM EDT Colby Bartlett MD LAB BLOOD ORDERABL ES Final Result [facility] [address] [place] [address] [phone] from Last 3 Months or Most Recently Relevant to Health Maintenance Insurance [employer] C3 D[employer]AL-[employer] STAND ADULT Care Teams Pipefitter Relationship Specialty Start Date End Date Colby Shore MD [address] [place] [phone] PCP - General Internal Medicine 12/13/23
[2024-08-08 21:25] LABS: Bacterial Vaginosis PCR NEGATIVE (Negative); Candida Group PCR DETECTED (Not Detect); Candida glab krusei PCR NOT DETECTED (Not Detect); Trichomonas vaginalis PCR NOT DETECTED (Not Detect)
== END 2024-08-08 12:11 | disposition home or self-care (01) ==
LOC: HO.LNP 12:10
PROVIDERS: Visit Provider Advanced Practice Midwife
DX: N89.8 Other specified noninflammatory disorders of vagina (principal)
CPT/HCPCS: 81515; 87491; 87591

== ENCOUNTER 2024-08-08 12:10 | Outpatient (REF) | payer MEDICAID, SELFPAY ==
--- OUTSIDE RECORDS SUMMARY | 2024-08-08 19:58 | XMS_ITS | Encounter Summary ---
Author Organization [employer] Address [address] [place] [address] Care Team Providers Care Continuing Education Specialist Name Role Phone Colby Shore MD Primary [...] Description 11/19/2024 10:00 AM EDT Office Visit [facility] [address] [place] [address] Roxi, Fior [address] [place] [address] documented as of this encounter Visit Diagnoses Not on filedocumented in this encounter Additional Health Concerns Assessment Noted Time PHQ-9 Depression Total Score: 0 12/13/19 9:46 AM EDT documented as of this encounter Care Teams Continuing Education Specialist Relationship Specialty Start Date End Date Colby Shore MD [address] [place] [address] PCP - General Internal Medicine 12/13/23 documented as of this encounter
--- OUTSIDE RECORDS SUMMARY | 2024-08-08 19:58 | XMS_ITS | Encounter Summary ---
Author Organization [employer] Address [address] [place] [address] Care Team Providers Care Solar Installation Technician Name Role Phone Colby Shore MD Primary Care Prov ider Reason for Visit * Reason Comments Gynecologic Exam Yeast and BV prior t o menses every month Encounter Details Date Type Department Care Team (Latest Contact Info) Description 08/08/2024 11:30 AM EST Office Visit [facility] [address] [place] [address] Natali Cifuentes CN [address] [place] [address] Vaginal discharge (Primary Dx); Herpes simplex infection [...] kg/m?? Physical Exam Exam conducted with a access rep present (Natali Cifuentes CNM). Constitutional: Appearance: Normal [...] Description 11/19/2024 10:00 AM EDT Office Visit [facility] [address] [place], [place] [phone] Roxi, Fior [address] [place] [address] Scheduled Orders Name Type Priority Associated Diagnoses [...] documented as of this encounter Care Teams Solar Installation Technician Relationship Specialty Start Date End Date Colby Shore MD [address] [place] [phone] PCP - General Internal Medicine 12/13/23 documented as of this encounter
--- OUTSIDE RECORDS SUMMARY | 2024-08-08 19:58 | XMS_ITS | Encounter Summary ---
Author Organization [id number] Address [address] [facility] 7 [place] [address] Care Team Providers Care Stenotype Machine Operator Name Role Phone Colby Shore MD Primary Care Prov ider Reason for Visit * Reason Onset Date Comments triage 07/16/2024 Encounter Details Date Type Department Care Team ([facility] st Contact Info) Description 07/16/2024 Telephone [facility] [address] [place], [place] [phone] Colby Shore MD [address] [place] [address] triage Social History Tobacco Use Types Packs/Day [...] 11:27 AM EST Triage call [phone] [place] [id number], Benny. Pt didn't answer or was hanging up with call. Seo Strategist wasn't sure why the call wasn't connecting. Unable to leave voice message. * Telephone Encounter - Ainsley Maradiaga - 07/16/2024 10:56 AM EST Pt requesting appt w/ head butler stated every time before her menstrual cycle she gets bv or yeast. Pt stated she's spoken to pcp about it and requesting an appt documented in this encounter Plan of Treatment Upcoming Encounters Date Type Department Care Team (Late st Contact Info) Description 11/19/2024 10:00 AM EDT Office Visit [facility] AD[facility] [address] [place] [address] Roxi, Fior [address] [place] [address] documented as of this encounter Visit Diagnoses Not on filedocumented in this encounter Additional Health Concerns Assessment Noted Time PHQ-9 Depression Total Score: 0 12/13/19 9:46 AM EDT documented as of this encounter Care Teams Stenotype Machine Operator Relationship Specialty Start Date End Date Colby Shore MD [address] [place] [phone] PCP - General Internal Medicine 12/13/23 documented as of this encounter
--- OUTSIDE RECORDS SUMMARY | 2024-08-08 19:58 | XMS_ITS | Encounter Summary ---
Author Organization [employer] Address [address] [facility] 7 [place] [address] Care Team Providers Care It Risk And Assurance Manager Name Role Phone Colby Shore MD Primary Care Prov ider Reason for Visit * Reason Onset Date Comments Referral 08/06/2024 Encounter Details Date Type Department Care Team ([facility] st Contact Info) Description 08/06/2024 Telephone [facility] [address] [place], [place] [phone] Colby Shore MD [address] [place] [address] Referral Social History Tobacco Use Types Packs/Day [...] Miscellaneous Notes * Telephone Encounter - Etelvina Ganrer RN - 08/06/2024 1:07 PM EST Called pt. Via S automobile service writer [phone] [address]. Pt, states that every time prior to her menses she gets yeast infections and BV almost every month prior to menses. Pt has mentioned this to PCP in past and she wants to see TAG MACHINE OPERATOR. Appt. Made for 08/08/24 in [facility] TAG MACHINE OPERATOR schedule for 1130am on second floor where green team is located. Pt. Not currently with [facility]. But wants to see TAG MACHINE OPERATOR. Protocol Used: Vaginal Discharge (Adult) Protocol-Based Disposition: See in Office or Video Visit Today- appt. 08/08/24 at 1130am in [facility]. Positive Triage Questions: * Patient wants to [...] call to numbers provided below. Contact Information [phone] (Vwcpuq) [phone] documented in this encounter Plan of Treatment Upcoming Encounters Date Type Department Care Team ([facility] st Contact Info) Description 11/19/2024 10:00 AM EDT Office Visit [facility] ADULT DENTAL [address] [place], [place] [phone] Roxi, Fior [address] [place] [address] documented as of this encounter Visit Diagnoses Not on filedocumented in this encounter Additional Health Concerns Assessment Noted Time PHQ-9 Depression Total Score: 0 12/13/19 9:46 AM EDT documented as of this encounter Care Teams It Risk And Assurance Manager Relationship Specialty Start Date End Date Colby Shore MD [address] [place] [phone] PCP - General Internal Medicine 12/13/23 documented as of this encounter
--- OUTSIDE RECORDS SUMMARY | 2024-08-08 19:58 | XMS_ITS | Clinical Summary ---
Author Organization [employer] Address [address] [place] [address] Care Team Providers Care Shift Supervisor Name Role Phone Colby Shore MD Primary Care Prov ider Allergies Active Allergy Reactions Criticality Noted Date Comments Amoxicillin Anaphylaxis High 04/21/2023 Medications Sod Fluoride-Potass ium Nitrate 1.1-5 % paste [place] teeth for 2 minutes, morning and night. [...] Description 08/08/2024 11:30 AM EST Office Visit [facility] [address] [place] [address] Natali Cifuentes CNM Vaginal discharge (Primary Dx); Herpes simplex infection of genitourinary system 08/08/2024 Travel 08/06/2024 Telephone [facility] [address] [place] [address] Colby Shore MD Referral 07/16/2024 Telephone [facility] [address] [place] [address] Colby Shore MD triage 06/25/2024 Telephone [facility] [address] [place] [address] Colby Shore MD 06/20/2024 Telephone [facility] [address] [place] [address] Colby Shore MD 06/18/2024 11:00 AM EST Office Visit [facility] [address] [place] [address] Altagracia Silva MD Non-seasonal allergic rhinitis due to other allergic trigger (Primary Dx); Sore throat 06/18/2024 Travel 06/08/2024 Telephone [facility] MED[facility] [address] [place] [address] Colby Shore MD Nurse Triage 05/16/2024 3:00 PM EST Office Visit [facility] ADULT DENTAL [address] [place] [address] Fior Diane Dental calculus (Primary Dx) from [...] Description 11/19/2024 10:00 AM EDT Office Visit [facility] ADULT DENTAL [address] [place] [address] Roxi, Fior [address] [place] [address] Health Maintenance Due Date Last Done Comments [...] manually resulted (08/08/2024 12:16 PM EST) Pathologist [facility] WILLY Prep Negative Comment:pH 4.5, neg whiff, n eg clue, neg trich, neg yeast, neg wbc Vaginal Fluid Vaginal structure / Unknown 08/08/2024 12:16 PM EST Natali Cifuentes CNM POINT OF CARE TEST ENTER/ EDIT ORDERABLES Final Result * POCT Rapid Strep A OSOM (06/18/2024 3:16 PM EST) Pathologist [facility] Rapid Strep A Screen Negative Negative, None Detected QC Media Lot # [id number] Lot# Expiration Date [id number] Swab 06/18/2024 3:16 PM EST us Altagracia Silva MD POINT OF CARE TEST ENTER/ED IT ORDERABLES Final Result * ThinPrep Imaging Pap and HPV mRNA E6/E7 (01/18/2024 10:33 AM EDT) HPV nRNA E6/E7 Not Detected Not Detected [facility] Comment:Methodology: Transcr iption-Mediated AmplificationThis assay detects E6/E7 viral messenger RNA (mRNA) from 14high-risk HPV types (16,18,31,33,35,39,45,51,52,56,58,59,66,68).Cervical sources are required for HPV testing.If a vaginal source from a patient who has had atotal hysterectomy with removal of cervix wassubmitted, please contact the testing laboratoryfor alternative testing options.For additional information, please refer [email or web address]/CGL865u1(This link if provided for information/educational purposes only.)THIS TEST WAS PERFORMED AT:[email or web address] [address] [id number] BARBOSA MD SOURCE: SEE NOTE [facility] Comment:None given Report Status: [facility] Clinical Information: SEE NOTE [facility] Comment:None given LMP: SEE NOTE [facility] Comment:NONE GIVEN Prev. PAP: SEE NOTE [facility] Comment:NONE GIVEN Prev. BX: SEE NOTE [facility] Comment:NONE GIVEN Statement Of Adequacy: SEE NOTE [facility] Comment:Satisfactory for jose luation.Endocervical/transformation zone componentpresent. General Categorization: [facility] Interpretation/Result: SEE NOTE [facility] Comment:Cytology Results: Ne gative for intraepitheliallesion or malignancy. Cytology Comment SEE NOTE [facility] Comment:This Pap test has be en evaluated with computerassisted technology. Production Technician: SEE NOTE [facility] Comment:SL, CT(ASCP)CT scree rasta location: [place] [id number] Review Production Technician: [facility] Pathologist TNP [facility] PAP Infection TNP [facility] See Note SEE NOTE [facility] Comment:EXPLANATORY NOTE:The Pap is a [...] AM EDT 01/18/2024 6:16 PM EDT Narrative [facility] - 01/24/2024 1:24 PM EDT SEE SCANNED RESULTS IN EMR Colby Bartlett MD LAB PATHOLOGY ORDE RABLES Final Result Performing Organization Address [facility]/ZIP Co de Phone Number [facility] [address] [place] [phone] * Hepatitis C Antibody with Reflex to HCV, RNA, Quantitative, Real-Time PCR (01/03/2024 12:05 PM EDT) Hepatitis C Antibody Nonreactive Nonreactive [facility] Comment:Antibodies to HCV no t detected; does not exclude early acuteHCV infection. Blood Venous blood specimen / Unknown 01/03/2024 12:05 PM EDT 01/03/2024 1:58 PM EDT Colby Bartlett MD LAB BLOOD ORDERABL ES Final Result Performing Organization Address [facility]/ZIP Co de Phone Number [facility] [address] [place] [address] [phone] * HIV-1/2 Antigen and Antibodies, Fourth Generation, with Reflexes (01/03/2024 12:05 PM EDT) HIV AB/AG Nonreactive Nonreactive [facility] Comment:HIV-1 p24 Ag and/or HIV-1/HIV-2 Ab not detected.A test result that is nonreactive does not exclude thepossibility of exposure to or infection with HIV-1 and/orHIV-2. Nonreactive results in this assay for individualswith prior exposure to HIV-1 and/or HIV-2 may be due toantigen and antibody levels that are below the limit ofdetection of this assay.The [employer] HIV Ag/Ab Combo assay result andsupplemental assay results should be interpreted inconjunction with the patient's clinical presentation,history and other laboratory results. If the results areinconsistent with clinical evidence, additional testing issuggested to confirm the result. Blood Venous blood specimen / Unknown 01/03/2024 12:05 PM EDT 01/03/2024 1:58 PM EDT Colby Bartlett MD LAB BLOOD ORDERABL ES Final Result [facility] [address] [place] [address] [phone] from Last 3 Months or Most Recently Relevant to Health Maintenance Insurance [facility] C3 DENTAL-[facility] MEDICAID STAND ADULT Care Teams Shift Supervisor Relationship Specialty Start Date End Date Colby Shore MD [address] [place] [phone] PCP - General Internal Medicine 12/13/23
[2024-08-08 23:10] LABS: CT PCR NOT DETECTED (Not Detect.); NG PCR NOT DETECTED (Not Detect.)
== END 2024-08-08 12:11 | disposition home or self-care (01) ==
LOC: HO.LNP 12:10
PROVIDERS: Visit Provider Advanced Practice Midwife
DX: N89.8 Other specified noninflammatory disorders of vagina (principal)
CPT/HCPCS: 87491; 87591

== ENCOUNTER 2025-01-01 16:12 | Outpatient (REF) | payer MEDICAID, SELFPAY | END 2025-01-01 16:13 | disposition home or self-care (01) | LOC: HO.HHCLNP 16:12 | PROVIDERS: Visit Provider Internal Medicine | DX: R30.0 Dysuria (principal) | CPT/HCPCS: 87086; 87088; 87186 ==

== ENCOUNTER 2025-02-19 12:16 | Outpatient (REF) | payer MEDICAID, SELFPAY ==
--- OUTSIDE RECORDS SUMMARY | 2025-02-19 09:40 | XMS_ITS | Encounter Summary ---
Author Organization [employer] Address [address] [facility] [address] 7t [place] [address] Care Team Providers Care Recreation Facility Attendant Name Role Phone Colby Shore MD Primary Care Prov ider Reason for Visit * Reason Comments UTI Encounter Details Date Type Department Care Team ([facility] st Contact Info) Description 02/19/2025 9:40 AM EDT Office Visit [facility] [address] [place] [address] [phone] Suzan Lira MD [address] [place], [place] [phone] Routine screening for STI (sexually transmitted infection) (Primary Dx); UTI symptoms Social History Tobacco Use Types Packs/Day Years [...] Sign Reading Time Taken Comments Blood Pressure 116/71 02/19/2025 9:23 AM EDT Pulse 73 02/19/2025 9:23 AM EDT Temperature 36.9 C (98.5 F) 02/19/2025 9:23 AM EDT Respiratory Rate 16 02/19/2025 9:23 AM EDT Oxygen Saturation - - Inhaled Oxygen Concentration - - Weight 70.8 kg (156 lb) 02/19/2025 9:23 AM EDT Height 157.5 cm (5' 2 ) 02/19/2025 9:23 AM EDT Body Mass Index 28.53 02/19/2025 9:23 AM EDT documented in this encounter Progress Notes * Suzan Lira MD - 02/19/2025 9:40 AM EDT Subjective Junie Herrera is a 34 y.o. female here for evaluation of dysuria and hesitancy beginning2 days ago. Other associated symptoms include: none. Fever has been absent. Symptoms which are not present include: back pain, chills, diarrhea, hematuria, vaginal discharge, and vaginal itching. UTI01/01/25 Escherichia coli Quant > 100,000 cfu/mL , sensitive except Escherichia coli: Ciprofloxacin >=4(R) Antibiotic use within past three months: Bactrim 7/22/25. Distant hx of pyelonephritis > 2 years ago. Objective BP 116/71 (BP Location: Left arm, Patient Position: Sitting, BP Cuff Size: Adult) Pulse 73 Temp98.5 ??F (36.9 ??C) (Temporal) Resp 16 Ht 5' 2 (1.575 m) Wt 156 lb (70.8 kg) BMI 28.53 kg/m?? Physical Exam Constitutional: Appearance: Normal appearance. Cardiovascular: Rate and Rhythm: Normal rate and regular rhythm. Heart sounds: Normal heart sounds. Pulmonary: Effort: Pulmonary effort is normal. Breath sounds: Normal breath sounds. Abdominal: Tenderness: There is no right CVA tenderness, left CVA tenderness, guarding or rebound. Comments: Mild suprapubic tenderness with palpation. Musculoskeletal: Cervical back: Normal range of motion and neck supple. Neurological: General: No focal deficit present. Mental Status: She is alert. Psychiatric: Behavior: Behavior normal. Lab review Office Visit on 02/19/2025 Component Date Value Ref Range Status Color, UA 02/19/2025 Yellow Final Clarity, UA 02/19/2025 Cloudy Final Glucose, UA 02/19/2025 Negative Final Bilirubin, UA 02/19/2025 Negative Final Ketones, UA 02/19/2025 Negative Final Spec Grav, UA 02/19/2025 1.020 Final Blood, UA 02/19/2025 Positive (A) Negative, None Detected Final Trace pH, UA 02/19/2025 7.0 Final Protein, UA 02/19/2025 Trace Final Urobilinogen, UA 02/19/2025 0.2 Final Leukocytes, UA 02/19/2025 Many (A) Negative, Rare, Trace Final Large Nitrite, UA 02/19/2025 Positive (A) Negative, None Detected Final Appearance, UA 02/19/2025 OK Final Preg Test, Ur 02/19/2025 Negative Negative, Indeterminate, None Detected, Invalid, Specimen unsatisfactory for evaluation, Weakly Positive, 2+ Final Junie was seen today for uti. Diagnoses and all orders for this visit: Routine screening for STI (sexually transmitted infection) (Primary) - Chlamydia/N. Gonorrhoeae, PCR, Urine - HIV-1/2 Antigen and Antibodies, Fourth Generation, with Reflexes; Future - Syphilis Screen; Future - Hepatitis C Antibody with Reflex to HCV, RNA, Quantitative, Real-Time PCR; Future UTI symptoms - POCT urinalysis dipstick manually resulted - POCT , urine manually resulted - Culture, Urine, Routine - Cancel: Urinalysis, Complete, with Reflex to Culture; Future - sulfamethoxazole-trimethoprim (Bactrim DS) 800-160 MG tablet; Take 1 tablet by mouth 2 times daily for 3 days. - phenazopyridine (Pyridium) 100 MG tablet; Take 1 tablet (100 mg) by mouth if needed in the morning and at bedtime for bladder spasms for up to 2 days. - Urinalysis, Complete, with Reflex to Culture Assessment & Plan UTI symptoms Likely acute UTI based on history, exam and urine dip. No clinical evidence of acute abdomen or pyelonephritis. Denies antibiotic use in the past 90 days. Allergies reviewed. -Urinalysis and urine culture sent to the lab -Empiric antibiotics started -Potential adverse effects of the medication reviewed -Discussed strategies to prevent future infections: Increase fluids. Urinate after sex. Avoid bladder irritants. -Report fever, chills, worsening symptoms or abdominal/flank pain -Advised to seek medical attention if no improvement or worsening of symptoms -ER precautions reviewed. Orders: POCT urinalysis dipstick manually resulted POCT , urine manually resulted Culture, Urine, Routine sulfamethoxazole-trimethoprim (Bactrim DS) 800-160 MG tablet; Take 1 tablet by mouth 2 times daily for 3 days. phenazopyridine (Pyridium) 100 MG tablet; Take 1 tablet (100 mg) by mouth if needed in the morning and at bedtime for bladder spasms for up to 2 days. Urinalysis, Complete, with Reflex to Culture Routine screening for STI (sexually transmitted infection) Orders: Chlamydia/N. Gonorrhoeae, PCR, Urine HIV-1/2 Antigen and Antibodies, Fourth Generation, with Reflexes; Future Syphilis Screen; Future Hepatitis C Antibody with Reflex to HCV, RNA, Quantitative, Real-Time PCR; Future Likely acute UTI based on history, exam and urine dip. No clinical evidence of acute abdomen or pyelonephritis. Denies antibiotic use in the past 90 days. Allergies reviewed. -Urinalysis and urine culture sent to the lab -Empiric antibiotics started -Potential adverse effects of the medication reviewed -Discussed strategies to prevent future infections: Increase fluids. Urinate after sex. Avoid bladder irritants. -Report fever, chills, worsening symptoms or abdominal/flank pain -Advised to seek medical attention if no improvement or worsening of symptoms -ER precautions reviewed. documented in this encounter Plan of Treatment Upcoming Encounters Date Type Department Care Team (Late st Contact Info) Description 06/03/2025 1:00 PM EST Office Visit [facility] [address] [place], [place] [phone] Roxi, Fior [address] [place] [address] Scheduled Orders Name Type Priority Associated Diagnoses Orde r Schedule Culture, Urine, Routine Microbiology Routine UTI symptoms Ordered: 02/19/2025 HIV-1/2 Antigen and Antibodies, Fourth Generation, with Reflexes Lab Routine Routine screening for STI (sexually transmitted infection) Expected: 02/19/2025 (Approximate), Expires: 02/19/2026 Syphilis Screen Lab Routine Routine screening for STI (sexually transmitted infection) Expected: 02/19/2025 (Approximate), Expires: 02/19/2026 Hepatitis C Antibody with Reflex to HCV, RNA, Quantitative, Real-Time PCR Lab Routine Routine screening for STI (sexually transmitted infection) Expected: 02/19/2025 (Approximate), Expires: 02/19/2026 documented as of this encounter Procedures Procedure Name Priority Date/Time Associated Diagnosis Comments CHLAMYDIA/TRICHOMON /NEISSERIA GONORRHOEAE, PCR, URINE Routine 02/19/2025 10:01 AM EDT Routine screening for STI (sexually transmitted infection) URINALYSIS, COMPLETE, WITH REFLEX TO CULTURE Routine 02/19/2025 10:01 AM EDT UTI symptoms POCT , URINE Routine 02/19/2025 9:36 AM EDT UTI symptoms POCT URINALYSIS DIPSTICK Routine 02/19/2025 9:31 AM EDT UTI symptoms documented in this encounter Results * (ABNORMAL) Urinalysis, Complete, with Reflex to Culture (02/19/2025 10:01 AM EDT) Color Urine Yellow [facility] Appearance Urine Clear [facility] PH 7.5 5.0 - 9.0 [facility] Glucose Urine UA Negative Negative mg/dL [facility] Urine Blood Negative Negative [facility] Specific [place] - Urine 1.020 1.005 - 1.025 [facility] Urine Protein Trace Neg-Trace mg/dL [facility] Urine Ketones Negative Negative mg/dL [facility] Nitrite Urine Positive(A) Negative [facility] Leukocyte Esterase Urine Moderate (2+)(A) Negative [facility] RBC Urine 3-5(A) 0 - 2 /HPF [facility] Urine WBC >50(A) 0 - 5 /HPF [facility] Urine Squamous Epithelial Cell 3-5 0 - 2 /HPF [facility] Urine Bacteria 4+ None Seen [facility] Hyaline Casts, Urine 0-2 0 - 2 /LPF [facility] Urine 02/19/2025 10:0 1 AM EDT 02/20/2025 12:18 PM EDT Narrative [facility] - 02/20/2025 12:51 PM EDT Urine, Clean Catch us Suzan Lira MD LAB URINE ORDERABLES Final Result [facility] [address] [place] [phone] * Chlamydia/N. Gonorrhoeae, PCR, Urine (02/19/2025 10:01 AM EDT) CT PCR, Urine NOT DETECTED Not Detect. [facility] Comment:A not detected test result does not exclude the possibilityof infection because test results can be affected byimproper specimen collection, concurrent antibiotic therapy,or the number of organisms in the specimen which may bebelow the sensitivity of the test. As with many diagnostictests, results from the Xpert CT/NG assay should beinterpreted in conjunction with other laboratory andclinical data available to the clinician.The Xpert CT/NG assay should not be used for the evaluationof suspected sexual abuse or for other medico-legalindications. Additional testing is recommended in anycircumstance when false positive or false negative resultscould lead to adverse medical, social or psychologicalconsequences. NG PCR, Urine NOT DETECTED Not Detect. [facility] Comment:A not detected test result does not exclude the possibilityof infection because test results can be affected byimproper specimen collection, concurrent antibiotic therapy,or the number of organisms in the specimen which may bebelow the sensitivity of the test. As with many diagnostictests, results from the Xpert CT/NG assay should beinterpreted in conjunction with other laboratory andclinical data available to the clinician.The Xpert CT/NG assay should not be used for the evaluationof suspected sexual abuse or for other medico-legalindications. Additional testing is recommended in anycircumstance when false positive or false negative resultscould lead to adverse medical, social or psychologicalconsequences. Urine (Urine, Random) 02/19/2025 10:01 AM EDT 02/20/2025 12:18 PM EDT us Suzan Lira MD LAB URINE ORDERABLES Final Result Performing Organization Address City/State/[facility] Co de Phone Number [facility] [address] [place] [phone] * POCT , urine manually resulted (02/19/2025 9:36 AM EDT) Preg Test, Ur Negative Negative, Indeterminate, None Detected, Invalid, Specimen unsatisfactory for evaluation, Weakly Positive, 2+ Urine 02/19/2025 9:36 AM EDT us Suzan Lira MD POINT OF CARE TEST ENTER/E DIT ORDERABLES Final Result * (ABNORMAL) POCT urinalysis dipstick manually resulted (02/19/2025 9:31 AM EDT) Color, UA Yellow Clarity, UA Cloudy Glucose, UA Negative Bilirubin, UA Negative Ketones, UA Negative Spec Grav, UA 1.020 Blood, UA Positive(A) Negative, None Detected Comment:Trace pH, UA 7.0 Protein, UA Trace Urobilinogen, UA 0.2 Leukocytes, UA Many(A) Negative, Rare, Trace Comment:Large Nitrite, UA Positive(A) Negative, None Detected Appearance, UA OK Urine 02/19/2025 9:31 AM EDT Suzan Lira MD POINT OF CARE TEST ENTER/E DIT ORDERABLES Final Result documented in this encounter Visit Diagnoses Diagnosis Routine screening for STI (sexually transmitted infection)- Primary Screening examination for venereal disease UTI symptoms documented in this encounter Additional Health Concerns Assessment Noted Time PHQ-9 Depression Total Score: 0 12/13/19 9:46 AM EDT documented as of this encounter Care Teams Recreation Facility Attendant Relationship Specialty Start Date End Date Colby Shore MD [address] [place] [phone] PCP - General Internal Medicine 12/13/23 documented as of this encounter
[2025-02-20 12:32] LABS: Appearance Urine Clear; Glucose Urine UA Negative (Negative); PH 7.5 (5.0-9.0); Specific Gravity - Urine 1.020 (1.005-1.025); UMIC TRIGGER UACC YES
[2025-02-20 12:50] LABS: UACC Culture Trigger YES
[2025-02-20 13:50] LABS: CT PCR Urine NOT DETECTED (Not Detect.); NG PCR Urine NOT DETECTED (Not Detect.)
--- OUTSIDE RECORDS SUMMARY | 2025-02-20 15:22 | XMS_ITS | Encounter Summary ---
Author Organization [employer] Address [address] [place] [address] Care Team Providers Care Steel Roller Name Role Phone Colby Shore MD Primary Care Prov ider Encounter Details Date Type Department Care Team (Latest Contact Info) Description 02/19/2025 Travel Social History Tobacco Use Types Packs/Day [...] 1:00 PM EST Office Visit [facility] [address] [place] [address] Roxi, Fior [address] [place] [address] documented as of this encounter Visit Diagnoses Not on filedocumented in this encounter Additional Health Concerns Assessment Noted Time PHQ-9 Depression Total Score: 0 12/13/19 24 9:46 AM EDT documented as of this encounter Care Teams Steel Roller Relationship Specialty Start Date End Date Colby Shore MD [address] [place] [phone] PCP - General Internal Medicine 12/13/23 documented as of this encounter
--- OUTSIDE RECORDS SUMMARY | 2025-02-20 15:23 | XMS_ITS | Clinical Summary ---
Author Organization [employer] Address [address] [facility] [address] [place] [address] Care Team Providers Care Departmental Secretary Name Role Phone Colby Shore MD Primary Care Prov ider Allergies Active Allergy Reactions Criticality Noted Date Comments Amoxicillin Anaphylaxis High 04/21/2023 Medications Sod Fluoride-Potass ium Nitrate 1.1-5 % paste [place] teeth for 2 minutes, morning and night. Spit, do not rinse. Do not eat or drink anything for 30 minutes following brushing. 112 g 3 4 Active Additional Information Patient not taking.Reason: Not available, Reported on 11/19/2024 fexofenadine (Maite) 180 MG tabletIndicatio ns:Non-seasonal allergic rhinitis due to other allergic trigger Take 1 tablet (180 mg) by mouth if needed each day (Allergies). 30 tablet 2 5 Active valACYclovir (Valtrex) 500 MG tablet Take 1 tablet (500 mg) by mouth Once per day. 30 tablet 11 5 08/08/19 26 Active fluticasone (Flonase) 50 MCG/ACT nasal sprayIndication s:Non-seasonal allergic rhinitis due to other allergic trigger INSTILL 1 SPRAY IN EACH NOSTRIL ONCE DAILY IN THE MORNING 48 g 3 5 Active naproxen (Naprosyn) 500 MG tablet TAKE 1 TABLET BY MOUTH TWICE DAILY IN THE MORNING AND AT BEDTIME NEEDED FOR MILD PAIN 40 tablet 1 5 Active cetirizine (ZyrTEC) 10 MG tablet Take 1 tablet by mouth Once per day. 5 Active sulfamethoxazol e-trimethoprim (Bactrim DS) 800-160 MG tabletIndicatio ns:Urinary Tract Infection Take 1 tablet by mouth 2 times daily for 3 days. 6 tablet 5 02/23/20 25 Active phenazopyridine (Pyridium) 100 MG tabletIndicatio ns:UTI symptoms Take 1 tablet (100 mg) by mouth if needed in the morning and at bedtime for bladder spasms for up to 2 days. 4 tablet 5 02/22/20 25 Active Active Problems Problem Noted Date Diagnosed [...] or worsening of symptoms -ER precautions reviewed. Normal oral exam 01/30/2024 Assessment & Plan (01/30/2024 10:39 PM EDT): Not seen a pcp in over 7 years Er visit in the past due to uti which required hospitalization Pmhx: - Pshx: appendectomy 2021, csec 2015/2016, tubal ligation on 2016 All: pnc Meds: zyrtec otc Other fatigue 01/30/2024 Assessment & Plan (01/30/2024 10:43 PM EDT): Labs will be ordered for evalaution of secondary causes Dental calculus 12/07/2023 Gingival bleeding 12/07/2023 Periodontal disease 12/07/2023 Dental plaque 09/09/2023 Pyelonephritis of right kidney 04/25/2023 Encounters Date Type Department Care Team Description 02/19/2025 9:40 AM EDT Office Visit [facility] [address] [address] Suzan Lira MD Routine screening for STI (sexually transmitted infection) (Primary Dx); UTI symptoms 02/19/2025 Travel 01/04/2025 Results Follow-Up [facility] [address] [place] [address] Estelle Westbrook MD POCT Urinalysis, Culture, Urine, Routine 01/01/2025 9:40 AM EDT Office Visit [facility] [place] [address], [place] [phone] Estelle Westbrook MD Cystitis (Primary Dx); Dysuria 01/01/2025 Travel 12/31/2024 Telephone [facility] [address] [place] [address] Colby Shore MD Nurse Triage from Last 3 Months Immunizations Immunization Administration Dates Next Due Influenza, seasonal, injectable, [...] Q2 Not on file 02/13/2024 Comments No Intention Date Recorded No desire to become (finding) 0 08/08/2024 Sex and Gender Information Value Date Recorded [...] 16 02/19/2025 9:23 AM EDT Oxygen Saturation 99% 01/01/2025 9:18 AM EDT Inhaled Oxygen Concentration - - Weight 70.8 kg (156 lb) 02/19/2025 9:23 AM EDT Height 157.5 cm (5' 2 ) 02/19/2025 9:23 AM EDT Body Mass Index 28.53 02/19/2025 9:23 AM EDT Plan of Treatment Upcoming Encounters Date Type Department Care Team (Late st Contact Info) Description 06/03/2025 1:00 PM EST Office Visit [facility] [address] [place] [address] [place], [place] [address] [place] [address] Health Maintenance Due Date Last Done Comments Disability Screening 1992 Alcohol/Substance Use Screening 2004 HPV Vaccines (1 - 3-dose series) 11/30/2007 DTaP/Tdap/Td Vaccines (1 - Tdap) 11/30/2011 Hepatitis B Vaccines (1 of 3 - 19+ 3-dose series) 11/30/2011 Depression Screening 12/12/2024 12/13/2023, 12/13/19 24 SDOH Screening 12/12/2024 12/13/2023 COVID-19 Vaccine ( season) 2025 Influenza Vaccine (#1) 2025 02/23/2024 Dental Oral Exam 05/22/2025 11/19/2024, , 04/21/2023 Dental Prophylaxis 05/22/2025 11/19/2024, 1 07/17/2023, 12/07/2023, Additional history exists Family Planning (PISQ) 08/08/2025 08/08/2024 Dental X-Ray: Bitewings 11/20/2025 11/20/19, 09/09/2023, 04/21/2023 Tobacco Screening 02/19/2026 02/19/2025 Dental X-Ray: Full Mouth 04/22/2026 04/21/2023 Cervical Cancer Screening 01/17/2029 HPV/Cotest 01/17/2029 01/18/2024 Pap Smear 01/17/2029 01/18/2024 Zoster Vaccines (1 of 2) 2042 RSV Patients and Patients Aged 60 years or older (1 - 1-dose 75+ series) 11/30/2067 HIV Screening Completed 01/03/2024 Hepatitis C Screening Completed 01/03/2024 HIB Vaccines Aged Out No longer eligi ble based on patient's age to complete this topic Hepatitis A Vaccines Aged Out No long er eligible based on patient's age to complete this topic IPV Vaccines Aged Out No longer eligi ble based on patient's age to complete this topic Meningococcal B Vaccine Aged Out No l onger eligible based on patient's age to complete this topic Meningococcal Vaccine Aged Out No camden lorenzo eligible based on patient's age to complete this topic Pneumococcal Vaccine: Pediatrics (0 to 5 Years) and At-Risk Patients (6 to 49) Years Aged Out No longer eligible based on patient's age to complete this topic RSV under 20 months Aged Out No longe r eligible based on patient's age to complete this topic Rotavirus Vaccines Aged Out No longer eligible based on patient's age to complete this topic Procedures Procedure Name Priority Date/Time Associated Diagnosis Comments URINALYSIS, COMPLETE, WITH REFLEX TO CULTURE Routine 02/19/2025 10:01 AM EDT UTI symptoms CHLAMYDIA/TRICHOMONAS /NEISSERIA GONORRHOEAE, PCR, URINE Routine 02/19/2025 10:01 AM EDT Routine screening for STI (sexually transmitted infection) POCT , URINE Routine 02/19/2025 9:36 AM EDT UTI symptoms POCT URINALYSIS DIPSTICK Routine 02/19/2025 9:31 AM EDT UTI symptoms CULTURE, URINE, ROUTINE Routine 01/01/2025 9:36 AM EDT Dysuria POCT URINALYSIS DIPSTICK Routine 01/01/2025 9:33 AM EDT Dysuria Full PROPHYLAXIS - ADULT Routine 11/19/2024 10:00 AM EDT Dental plaque BITEWINGS - 4 RADIOGRAPHIC IMAGES Routine 11/19/2024 10:00 AM EDT Dental plaque PERIODIC ORAL EVALUATION - ESTABLISHED PATIENT Routine 11/19/2024 10:00 AM EDT THINPREP IMAGING PAP AND HPV MRNA E6/E7 Routine 01/18/2024 10:33 AM EDT HEPATITIS C AB W/REFL TO HCV RNA, QN, PCR Routine 01/03/2024 12:05 PM EDT Possible exposure to STD HIV 1/2 ANTIGEN/ANTIBODY, FOURTH GENERATION W/RFL Routine 01/03/2024 12:05 PM EDT Possible exposure to STD INTRAORAL - COMPLETE SERIES OF RADIOGRAPHIC IMAGES Routine 04/21/2023 8:00 AM EST Dental calculus from Last 3 Months or Most Recently Relevant to Health Maintenance Results * Chlamydia/N. Gonorrhoeae, PCR, Urine (02/19/2025 10:01 AM EDT) CT PCR, Urine NOT DETECTED Not Detect. [facility] Comment:A not detected test result does [...] NG PCR, Urine NOT DETECTED Not Detect. [facility] Comment:A not detected test result does [...] Lira MD LAB URINE ORDERABLES Final Result [facility] [address] [place] [phone] * (ABNORMAL) Urinalysis, Complete, with Reflex to Culture (02/19/2025 10:01 AM EDT) Color Urine Yellow [facility] Appearance Urine Clear [facility] PH 7.5 5.0 - 9.0 [facility] Glucose Urine UA Negative Negative mg/dL [facility] Urine Blood Negative Negative [facility] Specific [place] - Urine 1.020 1.005 - 1.025 [facility] Urine Protein Trace Neg-Trace mg/dL [facility] Urine Ketones Negative Negative mg/dL [facility] Nitrite Urine Positive(A) Negative [facility] Leukocyte Esterase Urine Moderate (2+)(A) Negative [facility] RBC Urine 3-5(A) 0 - 2 /HPF [facility] Urine WBC >50(A) 0 - 5 /HPF [facility] Urine Squamous Epithelial Cell 3-5 0 - 2 /HPF [facility] Urine Bacteria 4+ None Seen [facility] Hyaline Casts, Urine 0-2 0 - 2 /LPF [facility] Urine 02/19/2025 10:0 1 AM EDT 02/20/2025 12:18 PM EDT Narrative [facility] - 02/20/2025 12:51 PM EDT Urine, Clean Catch Suazn Lira MD LAB URINE ORDERABLES Final Result [facility] [address] [place] [phone] * POCT , urine manually resulted (02/19/2025 9:36 AM EDT) Preg Test, Ur Negative Negative, Indeterminate, None Detected, Invalid, Specimen unsatisfactory for evaluation, Weakly Positive, 2+ Urine 02/19/2025 9:36 AM EDT Suzan Lira MD POINT OF CARE TEST ENTER/E DIT ORDERABLES Final Result * (ABNORMAL) POCT urinalysis dipstick manually resulted (02/19/2025 9:31 AM EDT) Only the most recent of2 resultswithin the time period is included. Color, UA Yellow Clarity, UA Cloudy Glucose, [...] TEST ENTER/E DIT ORDERABLES Final Result * Culture, Urine, Routine (01/01/2025 9:36 AM EDT) Urine Urine specimen obtained by clean catch procedure / Unknown 01/01/2025 9:36 AM EDT 01/01/2025 4:13 PM EDT Comment:UACC Narrative [facility] - 01/03/2025 7:42 AM EDT Escherichia coli Quant > 100,000 cfu/mL Escherichia coli: Ampicillin <=2(S) Escherichia coli: Cefazolin (Urine) <=1(S) Escherichia coli: Cefepime <=0.12(S) Escherichia coli: Ceftriaxone <=0.25(S) Escherichia coli: Ciprofloxacin >=4(R) Escherichia coli: Gentamicin <=1(S) Escherichia coli: Nitrofurantoin <=16(S) Escherichia coli: Trimethoprim/Sulfamethoxazole <=20(S) Specimen Source: Urine clean catch Estelle Westbrook MD LAB MICROBIOLOGY - GENERAL OR DERABLES Final Result [facility] [address] [place] [phone] * ThinPrep Imaging Pap and HPV mRNA E6/E7 (01/18/2024 10:33 AM EDT) HPV nRNA E6/E7 Not Detected Not Detected [facility] Comment:Methodology: Transcr iption-Mediated AmplificationThis assay detects E6/E7 viral messenger RNA (mRNA) from 14high-risk HPV types (16,18,31,33,35,39,45,51,52,56,58,59,66,68).Cervical sources are required for HPV testing.If a vaginal source from a patient who has had atotal hysterectomy with removal of cervix wassubmitted, please contact the testing laboratoryfor alternative testing options.For additional information, please refer [email or web address]/[email or web address](This link if provided for information/educational purposes only.)THIS TEST WAS PERFORMED AT:[facility] [address] [phone] BARBOSA MD SOURCE: SEE NOTE [facility] Comment:None given Report Status: [facility] Clinical Information: SEE NOTE [facility] Comment:None given LMP: SEE NOTE [facility] Comment:NONE GIVEN Prev. PAP: SEE NOTE [facility] Comment:NONE GIVEN Prev. BX: SEE NOTE [facility] Comment:NONE GIVEN Statement Of Adequacy: SEE NOTE [facility] Comment:Satisfactory for jose luation.Endocervical/transformation zone componentpresent. General Categorization: [facility] Interpretation/Result: SEE NOTE [facility] Comment:Cytology Results: Ne gative for intraepitheliallesion or malignancy. Cytology Comment SEE NOTE [facility] Comment:This Pap test has be en evaluated with computerassisted technology. [employer] Specialist: SEE NOTE [facility] Comment:SL, CT(ASCP)CT ross magdaleno location: [place] [id number] Review [employer]otive Glass Specialist: [facility] Pathologist [facility] PAP Infection [facility] See Note SEE [facility] Comment:EXPLANATORY NOTE:The Pap is a screening test for cervical cancer. It isnot a diagnostic test and is subject to false negativeand false positive results. It is most reliable when asatisfactory sample, regularly obtained, is submittedwith relevant clinical findings and history, and whenthe Pap result is evaluated along with historic andcurrent clinical information. 01/18/2024 10:3 3 AM EDT 01/18/2024 6:16 PM EDT Narrative [facility] - 01/24/2024 1:24 PM EDT SEE SCANNED RESULTS IN EMR us Colby Bartlett MD LAB PATHOLOGY ORDE RABLES Final Result Performing Organization Address City/[facility]/ZIP Co de Phone Number [facility] [address] [place] [phone] * Hepatitis C Antibody with Reflex to HCV, RNA, Quantitative, Real-Time PCR (01/03/2024 12:05 PM EDT) Hepatitis C Antibody Nonreactive Nonreactive [facility] Comment:Antibodies to HCV no t detected; does not exclude early acuteHCV infection. Blood Venous blood specimen / Unknown 01/03/2024 12:05 PM EDT 01/03/2024 1:58 PM EDT Colby Bartlett MD LAB BLOOD ORDERABL ES Final Result Performing Organization Address [facility] Co de Phone Number [facility] [address] [place] [phone] * HIV-1/2 Antigen and Antibodies, Fourth Generation, with Reflexes (01/03/2024 12:05 PM EDT) Pathologist [facility] HIV AB/AG Nonreactive Nonreactive [facility] Comment:HIV-1 p24 Ag and/or HIV-1/HIV-2 Ab not detected.A test result that is nonreactive does not exclude thepossibility of exposure to or infection with HIV-1 and/orHIV-2. Nonreactive results in this assay for individualswith prior exposure to HIV-1 and/or HIV-2 may be due toantigen and antibody levels that are below the limit ofdetection of this assay.The [employer] HIV Ag/Ab Combo assay result andsupplemental assay results should be interpreted inconjunction with the patient's clinical presentation,history and other laboratory results. If the results areinconsistent with clinical evidence, additional testing issuggested to confirm the result. Blood Venous blood specimen / Unknown 01/03/2024 12:05 PM EDT 01/03/2024 1:58 PM EDT Colby Bartlett MD LAB BLOOD ORDERABL ES Final Result [facility] [address] [place] [phone] from Last 3 Months or Most Recently Relevant to Health Maintenance [place] [facility] [employer] Care Teams Departmental Secretary Relationship Specialty Start Date End Date Colby Shore MD [address] [place] [phone] PCP - General Internal Medicine 12/13/23
== END 2025-02-19 12:17 | disposition home or self-care (01) ==
LOC: HO.HHCLNP 12:16
PROVIDERS: Visit Provider Family Medicine
DX: Z11.3 Encounter for screening for infections with a predominantly sexual mode of transmission (principal); R39.9 Unspecified symptoms and signs involving the genitourinary system
CPT/HCPCS: 81001; 87086; 87088; 87186; 87491; 87591

== ENCOUNTER 2025-03-12 10:37 | Outpatient (REF) | payer MEDICAID, SELFPAY ==
--- NOTE | ~2025-03-12 | XR_ITS ---
EXAMINATION: XR HAND, RIGHT CLINICAL INFORMATION: 4 months history of R thumb injury playing volleyball, thumb pain chronic COMPARISON: None available. TECHNIQUE: PA, lateral, and oblique views of the right hand. FINDINGS: No acute cortical disruption or malalignment. No lytic or blastic lesions. No metallic or radiopaque foreign body. No subcutaneous emphysema. XR/XR hand RT min 3V IMPRESSION: No acute fracture or dislocation. Negative x-ray. Electronically signed by: Asif Koch MD 03/12/2025 11:45 AM EDT
--- OUTSIDE RECORDS SUMMARY | 2025-03-12 11:57 | XMS_ITS | Clinical Summary ---
Author Organization [employer] Address [address] [facility] [address] [place] [address] Care Team Providers Care Emergency Room Doctor Name Role Phone Colby Shore MD Primary Care Prov ider Allergies Active Allergy Reactions Criticality Noted Date Comments Amoxicillin Anaphylaxis High 04/21/2023 Medications Sod Fluoride-Potass ium Nitrate 1.1-5 % paste [place] teeth for 2 minutes, morning and night. [...] 3 days. 6 tablet 5 02/23/20 25 phenazopyridine (Pyridium) 100 MG tabletIndicatio ns:UTI symptoms Take 1 tablet (100 mg) by mouth if needed in the morning and at bedtime for bladder spasms for up to 2 days. 4 tablet 5 02/22/20 25 Active Problems Problem Noted Date Diagnosed Date [...] Encounters Date Type Department Care Team Description 03/05/2025 11:15 AM EDT Office Visit [facility] [address] [place] [address] Elizabeth Pandey MD Pain in thumb joint with movement, right (Primary Dx) 03/05/2025 Travel 03/05/2025 Telephone [facility] [address] [place] [address] Colby Shore MD Nurse Triage 02/22/2025 Results Follow-Up [facility] [address] [address] Suzan Lira MD Culture, Urine, Routine 02/19/2025 9:40 AM EDT [facility] [address] [address] Suzan Lira MD Routine screening for STI (sexually transmitted infection) (Primary Dx); UTI symptoms 02/19/2025 Travel 01/04/2025 Results Follow-Up [facility] [address] [place] [address] Estelle Westbrook MD POCT Urinalysis, Culture, Urine, Routine 01/01/2025 9:40 AM EDT [facility] [address] [address] Estelle Westbrook MD Cystitis (Primary Dx); Dysuria 01/01/2025 Travel 12/31/2024 Telephone [facility] [address] [place] [address] Colby Shore MD Nurse Triage from Last [...] Sign Reading Time Taken Comments Blood Pressure 111/67 03/05/2025 11:14 AM EDT Pulse 65 03/05/2025 11:14 AM EDT Temperature 36.7 C (98 F) 03/05/2025 11:14 AM EDT Respiratory Rate 16 03/05/2025 11:14 AM EDT Oxygen Saturation 99% 01/01/2025 9:18 AM EDT Inhaled Oxygen Concentration - - Weight 68.5 kg (151 lb) 03/05/2025 11:14 AM EDT Height 157.5 cm (5' 2 ) 02/19/2025 9:23 AM EDT Body Mass Index 27.62 02/19/2025 9:23 AM EDT Plan of Treatment Upcoming Encounters Date Type Department Care Team ([facility] st Contact Info) Description 05/30/2025 1:30 PM EST Office Visit [facility] [address] [place] [address] Fior Diane [address] [place] [address] Health Maintenance Due Date Last Done Comments Disability Screening 1992 Alcohol/Substance Use Screening 2004 HPV Vaccines (1 - 3-dose series) 11/30/2007 DTaP/Tdap/Td Vaccines (1 - Tdap) 11/30/2011 Hepatitis B Vaccines (1 of 3 - 19+ 3-dose series) 11/30/2011 Depression Screening 12/12/2024 12/13/2023, 12/13/19 SDOH Screening 12/12/2024 12/13/2023 COVID-19 Vaccine ( - 2023- season) 2025 Influenza Vaccine (#1) 2025 02/23/2024 Dental Oral Exam 05/22/2025 11/19/2024, , 04/21/2023 Dental Prophylaxis 05/22/2025 11/19/2024, 1 07/17/2023, 12/07/2023, Additional history exists Family Planning (PISQ) 08/08/2025 08/08/2024 Dental X-Ray: Bitewings 11/20/2025 11/20/19 25, 09/09/2023, 04/21/2023 Tobacco Screening 02/19/2026 02/19/2025 Dental [...] Procedure Name Priority Date/Time Associated Diagnosis Comments XR HAND 3+ VIEWS RIGHT Routine 03/12/2025 11:35 AM EDT Pain in thumb joint with movement, right CULTURE, URINE, ROUTINE Routine 02/20/2025 12:00 AM EDT URINALYSIS, COMPLETE, WITH REFLEX TO CULTURE Routine [...] Recently Relevant to Health Maintenance Results * XR Hand 3+ Views Right (03/12/2025 11:35 AM EDT) Anatomical Region Laterality Modality Upper Extremities, Hand Right Radiogra phic Imaging 03/12/2025 11:3 5 AM EDT Narrative 03/12/2025 11:48 [place] [address] XRay Report Signed Patient: Junie Lind MR# : [id number] : 1990 Acct:[id number] Age/Sex: 34 / F ADM Date: 03/12/25 Loc: [facility] Attending Dr: Elizabeth Pandey MD Ordering Physician: Elizabeth Pandey MD Date of Service: 03/12/25 Procedure(s): XR hand RT min 3V Accession Number(s): [id number] cc: Elizabeth Pandey MD; Colby Shore MD Reason for Exam: 4 months history of R thumb injury playing volleyball, thumb pain chronic EXAMINATION: XR HAND, RIGHT CLINICAL INFORMATION: 4 months history of R thumb injury playing volleyball, thumb pain chronic COMPARISON: None available. TECHNIQUE: PA, lateral, and oblique views of the right hand. FINDINGS: No acute cortical disruption or malalignment. No lytic or blastic lesions. No metallic or radiopaque foreign body. No subcutaneous emphysema. XR/XR hand RT min 3V IMPRESSION: No acute fracture or dislocation. Negative x-ray. Electronically signed by: Asif Koch MD 03/12/2025 11:45 AM EDT RP Dictated By: Asif Ellison MD Signed By: <Electronically signed by Asif Mohr MD in OV> 03/12/25 1145 DD/ 1135 TD/TT: 03/12/25 1140 Dental Service Technician: Procedure Note Donotuseinterpreter, Image - 03/12/[address] [address] XRay Report Signed Patient: Megha Lind# : [id number] : 1990Acct:[id number] Age/Sex: 34 / FADM Date: 03/12/25 [facility] Attending Dr: Elizabeth Pandey MD Ordering Physician: Elizabeth Pandey MD Date of Service: 03/12/25 Procedure(s): XR hand RT min 3V Accession Number(s): [id number] cc: Elizabeth Pandey MD; Colby Shore MD Reason for Exam: 4 months history of R thumb injury playing volleyball,thumb pain chronic EXAMINATION: XR HAND, RIGHT CLINICAL INFORMATION: 4 months history of R thumb injury playing volleyball, thumb pain chronic COMPARISON: None available. TECHNIQUE: PA, lateral, and oblique views of the right hand. FINDINGS: No acute cortical disruption or malalignment. No lytic or blastic lesions. No metallic or radiopaque foreign body. No subcutaneous emphysema. XR/XR hand RT min 3V IMPRESSION: No acute fracture or dislocation. Negative x-ray. Electronically signed by: Asif Koch MD 03/12/2025 11:45 AM EDT RP Dictated By: Asif Ellison MD Signed By: <Electronically signed by Asif Mohr MDin OV> 03/12/25 1145 DD/ 1135 TD/TT: 03/12/25 1140 Dental Service Technician: us Elizabeth Pandey MD IMG XR PROCEDURES Edited Resu lt - Final * Culture, Urine, Routine (02/20/2025 12:00 AM EDT) Only the most recent of2 resultswithin the time period is included. Urine Urine specimen obtained by clean catch procedure / Unknown 02/20/2025 02/20/2025 Comment:UACC Narrative [facility] - 02/22/2025 7:25 AM EDT Escherichia coli Quant > 100,000 cfu/mL Escherichia coli: Ampicillin <=2(S) Escherichia coli: Cefazolin (Urine) <=1(S) Escherichia coli: Cefepime <=0.12(S) Escherichia coli: Ceftriaxone <=0.25(S) Escherichia coli: Ciprofloxacin >=4(R) Escherichia coli: Gentamicin <=1(S) Escherichia coli: Nitrofurantoin <=16(S) Escherichia coli: Trimethoprim/Sulfamethoxazole <=20(S) Specimen Source: Urine clean catch us Suzan Lira MD LAB MICROBIOLOGY - GENERAL ORDERABLES Final Result [facility] [address] [place] [phone] * Chlamydia/N. Gonorrhoeae, PCR, Urine (02/19/2025 10:01 AM EDT) CT PCR, Urine NOT DETECTED Not Detect. [facility] Comment:A not detected test result does [...] NG PCR, Urine NOT DETECTED Not Detect. [facility] Comment:A not detected test result does [...] 10:01 AM EDT 02/20/2025 12:18 PM EDT Suzan Lira MD LAB URINE ORDERABLES Final Result [facility] [address] [place] [phone] * (ABNORMAL) Urinalysis, Complete, with Reflex to Culture (02/19/2025 10:01 AM EDT) Color Urine Yellow [facility] Appearance Urine Clear [facility] PH 7.5 5.0 - 9.0 [facility] Glucose Urine UA Negative Negative mg/dL [facility] Urine Blood Negative Negative [facility] Specific Salmon - Urine 1.020 1.005 - 1.025 [facility] Urine Protein Trace Neg-Trace mg/dL [facility] Urine Ketones Negative Negative mg/dL [facility] Nitrite Urine Positive(A) Negative [facility] Leukocyte Esterase Urine Moderate (2+)(A) Negative [facility] RBC Urine 3-5(A) 0 - 2 /HPF [facility] Urine WBC >50(A) 0 - 5 /HPF [facility] Urine Squamous Epithelial Cell 3-5 0 - 2 /HPF [facility] Urine Bacteria 4+ None Seen [facility] Hyaline Casts, Urine 0-2 0 - 2 /LPF [facility] Urine 02/19/2025 10:0 1 AM EDT 02/20/2025 12:18 PM EDT Narrative [facility] - 02/20/2025 12:51 PM EDT Urine, Clean Catch Suzan Lira MD LAB URINE ORDERABLES Final Result [facility] [address] [place] [phone] * POCT , urine manually resulted [...] UA OK Urine 02/19/2025 9:31 AM EDT us Suzan Lira MD POINT OF CARE TEST ENTER/E DIT ORDERABLES Final Result * [facility] Pap and HPV mRNA E6/E7 (01/18/2024 10:33 AM EDT) HPV nRNA E6/E7 Not Detected Not Detected [facility] Comment:Methodology: Transcr iption-Mediated AmplificationThis assay detects E6/E7 viral messenger RNA (mRNA) from 14high-risk HPV types (16,18,31,33,35,39,45,51,52,56,58,59,66,68).Cervical sources are required for HPV testing.If a vaginal source from a patient who has had atotal hysterectomy with removal of cervix wassubmitted, please contact the testing laboratoryfor alternative testing options.For additional information, please refer [email or web address]/CHR652p3(This link if provided for information/educational purposes only.)THIS TEST WAS PERFORMED AT:[facility] [address] [phone] BARBOSA MD SOURCE: SEE NOTE [facility] Comment:None given Report Status: [facility] Clinical Information: SEE NOTE [facility] Comment:None given LMP: SEE NOTE [facility] Comment:NONE GIVEN Prev. PAP: SEE NOTE [facility] Comment:NONE GIVEN Prev. BX: SEE NOTE [facility] Comment:NONE GIVEN Statement Of Adequacy: SEE NOTE [facility] Comment:Satisfactory for jose luation.Endocervical/transformation zone componentpresent. General Categorization: [facility] Interpretation/Result: SEE NOTE [facility] Comment:Cytology Results: Ne gative for intraepitheliallesion or malignancy. Cytology Comment SEE NOTE [facility] Comment:This Pap test has be en evaluated with computerassisted technology. Day Care Teacher: SEE NOTE [facility] Comment:SL, CT(ASCP)BRISEIDA magdaleno location: [place] [address] Review Day Care Teacher: [facility] Pathologist [facility] PAP Infection [facility] See Note SEE NOTE [facility] Comment:EXPLANATORY NOTE:The Pap is a screening test for cervical cancer. It isnot a diagnostic test and is subject to false negativeand false positive results. It is most reliable when asatisfactory sample, regularly obtained, is submittedwith relevant clinical findings and history, and whenthe Pap result is evaluated along with historic andcurrent clinical information. 01/18/2024 10:3 3 AM EDT 01/18/2024 6:16 PM EDT Narrative [facility] - 01/24/2024 1:24 PM EDT SEE SCANNED RESULTS IN EMR us Colby Bartlett MD LAB PATHOLOGY ORDE RABLES Final Result Performing Organization Address [facility]/ZIP Co de Phone Number [facility] [address] [place] [phone] * Hepatitis C Antibody with Reflex to HCV, RNA, Quantitative, Real-Time PCR (01/03/2024 12:05 PM EDT) Hepatitis C Antibody Nonreactive Nonreactive [facility] Comment:Antibodies to HCV no t detected; does not exclude early acuteHCV infection. Blood Venous blood specimen / Unknown 01/03/2024 12:05 PM EDT 01/03/2024 1:58 PM EDT us Colby Bartlett MD LAB BLOOD ORDERABL ES Final Result Performing Organization Address [facility]/ZIP Co de Phone Number [facility] [address] [place] [phone] * HIV-1/2 Antigen and Antibodies, Fourth Generation, with Reflexes (01/03/2024 12:05 PM EDT) HIV AB/AG Nonreactive Nonreactive [facility] Comment:HIV-1 p24 Ag and/or HIV-1/HIV-2 Ab not detected.A test result that is nonreactive does not exclude thepossibility of exposure to or infection with HIV-1 and/orHIV-2. Nonreactive results in this assay for individualswith prior exposure to HIV-1 and/or HIV-2 may be due toantigen and antibody levels that are below the limit ofdetection of this assay.The [employer] HIV Ag/Ab Combo assay result andsupplemental assay results should be interpreted inconjunction with the patient's clinical presentation,history and other laboratory results. If the results areinconsistent with clinical evidence, additional testing issuggested to confirm the result. Blood Venous blood specimen / Unknown 01/03/2024 12:05 PM EDT 01/03/2024 1:58 PM EDT us Colby Bartlett MD LAB BLOOD ORDERABL ES Final Result [facility] [address] [place] [phone] from Last 3 Months or Most Recently Relevant to Health Maintenance Insurance [facility] AD[facility] Care Teams Emergency Room Doctor Relationship Specialty Start Date End Date Colby Shore MD [address] [place] [phone] PCP - General Internal Medicine 12/13/23
== END 2025-03-12 10:38 | disposition home or self-care (01) ==
LOC: HO.HHCX 10:37
PROVIDERS: PCP Internal Medicine; Visit Provider Pediatrics
DX: M25.541 Pain in joints of right hand (principal)
CPT/HCPCS: 73130

== ENCOUNTER → 2025-03-12 10:46 | Outpatient (BNV) | payer MEDICAID, SELFPAY | PROVIDERS: PCP Internal Medicine; Visit Provider Radiology Diagnostic Radiology | DX: M79.644 Pain in right finger(s) (principal) | CPT/HCPCS: 73130 ==